=== PATIENT | male | born 1995 | race Caucasian/White ===

== ENCOUNTER 2020-07-02 20:18 | Inpatient (IN) | payer OTHER, SELFPAY ==
[~2020-07-02 20:18] MED LIST: Iopamidol 300 61% 100 ML VIAL FS ONE; Iopamidol-370 76% 500 ML 1 ML ONE
[2020-07-02] MEDS ORDERED: Propofol 1,000 MG/100 ML VIAL IV ONE ×2 (20:24→20:27)
[2020-07-02] MEDS ORDERED: PROPOFOL 0 ML ONE (20:24)
[2020-07-02] MEDS ORDERED: Boostrix 0.5 ML (Tdap) VIAL ONE (20:34)
[2020-07-02 20:44] LABS: INR-International Normal Ratio 1.1; PTT 31.4 sec (22.9-36.1); Prothrombin Time 14.4 sec (12.0-14.7)
[2020-07-02 20:45] LABS: #Basophils 0.1 thou/uL (0.0-0.2); #Eosinphils 0.1 thou/uL (0.0-0.7); #Lymphocytes 4.9 thou/uL (1.20-3.40); #Monocytes 0.2 thou/uL (0.11-0.59); #Neutrophils 12.8 thou/uL (1.40-6.50); %Basophils 0.8 % (0.0-1.0); %Eosinophils 0.7 % (0.0-10.0); %Lymphocytes 26.8 % (21.0-51.0); %Monocytes 1.1 % (0.0-10.0); %Neutrophils 70.7 % (42.0-75.0); Hemoglobin 13.5 g/dL (14.0-18.0); Mean Corpuscular HGB CONC 33.9 g/dL (32.0-36.0); Mean Corpuscular Hemoglobin 31.6 pg (27.0-31.0); Mean Corpuscular Volume 93.1 fL (78.0-98.0); Mean Platelet Volume 7.7 fL (7.4-10.4); Platelet Count 241 thou/uL (130-400); RBC Distribution Width 11.9 % (11.5-14.5); Red Blood Cell (RBC) Count 4.27 mill/uL (4.70-6.10); White Blood Cell (WBC) Count 18.1 thou/uL (4.8-10.8)
[2020-07-02] MEDS ORDERED: Fentanyl 100 MCG/2 ML VIAL ONE (20:46)
[2020-07-02 20:52] LABS: ALT (SGPT) 325 U/L (8-55); AST (SGOT) 488 U/L (5-34); Acetaminophen Less than 6.0 mcg/mL (10.0-30.0); Albumin 3.6 g/dL (3.5-5.0); Alcohol Less than 10 mg/dL (Less than 10); Alkaline Phosphatase 66 U/L (40-110); Anion Gap 13 mmol/L (10-20); BUN (Urea Nitrogen) 13 mg/dL (8.9-20.6); Bilirubin, Total 0.2 mg/dL (0.2-1.2); Calc. Creatinine Clearance 0 mL/min (70-130); Carbon Dioxide 23 mmol/L (22-29); Chloride 108 mmol/L (98-107); Globulin 2.2 g/dL (2.4-3.5); Glucose 140 mg/dL (70-105); Potassium 3.3 mmol/L (3.5-5.1); Protein, Total 5.8 g/dL (6.0-8.3); Salicylate Less than 8.0 mg/dL (15.0-30.0); Sodium 141 mmol/L (136-145)
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
--- NOTE | 2020-07-02 21:07 | RAD ---
EXAM: XR Chest 1 View Portable PROVIDED CLINICAL HISTORY: Endotracheal tube adjustment COMPARISON: 07/02/2018 at 2034 hours. FINDINGS: Endotracheal tube has been slightly advanced with tip overlying the T2-3 level and just above the lev el of the thoracic inlet. Right-sided thoracostomy tube remains unchanged in position. Left lateral costophrenic angle is again excluded from view. Lungs otherwise appear clear, and no obvious pneumoth orax or pleural effusion is seen. Fracture involving the lateral right first rib is again seen. Fracture of the lateral left first rib could not be entirely excluded. There is biapical increased de nsity which is thought to be related to extrapleural density and possibly soft tissues or extrapleural hemorrhage as opposed to pleural fluid as there is no pleural fluid at either lung base. This would be better evaluated with CT thorax. Cardiac silhouette and pulmonary vasculature are within normal limits. No other interval change. IMPRESSION: 1. Slight advancement of the endotracheal tube with tip overlying the T2-3 level. 2. Right-sided thoracostomy tube remain in place without a pneumothorax seen. 3. Fracture lateral right first rib with questionable fracture lateral left first rib. 4. Increased density each lung apex which is thought to be related to extrapleural density and possib ly either extrapleural soft tissues or extrapleural hemorrhage. This is not thought to be related to pleural fluid as there is no pleural fluid at either lung base. This would be better evaluated wit h CT thorax.
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
[2020-07-02] MEDS ORDERED: Insulin Regular 300 UNITS/3 ML VIAL SC PRN (21:33)
[2020-07-02] MEDS ORDERED: Dextrose 50% Abboject 50 ML SYRINGE SLOW IVP PRN (21:33)
[2020-07-02] MEDS ORDERED: Dextrose 5% in Water 1,000 ML IV PRN (21:33)
[2020-07-02] MEDS ORDERED: Ondansetron PF 4 MG/2 ML Vial IVP PRN (21:33)
[2020-07-02 21:38] LABS: Actual Bicarbonate (HCO3a) 19.6 mEq/L (22-28); Analyzer IN Cardio ER; CO2 Tension 43.6 mmHg (35.0-45.0); Calcium, Ionized (arterial) 1.14 mmol/L (1.12-1.30); Carboxyhemoglobin (COHb) 0.5 gm% (0.0-3.0); O2 Tension (PaO2), arterial 321.3 mmHg (80.0-100.0); pH, Arterial 7.27 (7.35-7.45)
[2020-07-02 21:45] LABS: Puncture Site LBA
[2020-07-02] MEDS ORDERED: Lorazepam 2 MG/ML VIAL SLOW IVP PRN (21:45)
[2020-07-02] MEDS ORDERED: Ventilator Sedation Protocol 1 EACH FS SCH (21:45)
[2020-07-02] MEDS ORDERED: DISCONTINUE PREVIOUS NARCOTIC PAIN MEDICATIONS AND BENZODIAZEPINES FS SCH (21:45)
[2020-07-02] MEDS ORDERED: Propofol BOLUS 1,000 MG/100 ML VIAL IV PRN (21:45)
[2020-07-02] MEDS ORDERED: Morphine 2 MG/ML VIAL SLOW IVP PRN (21:45)
[2020-07-02] MEDS ORDERED: Fentanyl BOLUS 250 ML IVPB PRN (21:45)
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
[2020-07-02 21:50] LABS: Bacteria/HPF None Seen HPF (None Seen); Bilirubin Negative (Negative); Blood, Urine 3+ (Negative); Clarity Turbid (Clear); Glucose, Urine (Dipstick) Normal (Negative); Ketone, Urine Negative (Negative); Leukocyte Negative Leu/uL (Negative); Nitrite Negative (Negative); Protein, Urine (Dipstick) 70 mg/dL (Neg-Trace); RBC/HPF Greater than 50 HPF (0-3); Specific Gravity, Urine 1.016 (1.002-1.036); Squamous Epithelial 0-3 HPF (0-3); Urobilinogen Normal mg/dL (Less than 2); WBC/HPF 21-50 HPF (0-3); pH, Urine 6.5 (5.0-9.0)
[2020-07-02 21:59] LABS: Magnesium 1.9 mg/dL (1.6-2.6); Phosphorus 3.7 mg/dL (2.3-4.7)
[2020-07-02 21:59] LABS: Amphetamine Detected (NotDetected); Barbiturates Screen Not Detected (NotDetected); Benzodiazepine Screen Not Detected (NotDetected); Cocaine Metabolite Screen Not Detected (NotDetected); Medtox Control Line Valid? VALID (VALID); Medtox Reader # READER 1; Methadone Not Detected (NotDetected); Methamphetamine Detected (NotDetected); Opiate Screen Not Detected (NotDetected); Oxycodone Screen Not Detected (NotDetected); Phencyclidine (PCP) Not Detected (NotDetected); THC/Cannabinoid Screen Detected (NotDetected); Tricyclic Screen Not Detected (NotDetected)
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
[2020-07-02] MEDS ORDERED: Magnesium 2 GM/50 ML 2 GM in Premix Bag 1 BAG IVPB SCH (22:30)
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
[2020-07-02] MEDS ORDERED: Potassium Phosphate 30 MMOL in Sodium Chloride 0.9% 250 ML 250 ML IVPB SCH (23:00)
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
[2020-07-02 23:28] LABS: Actual Bicarbonate (HCO3a) 20.3 mEq/L (22-28); Base Excess (BEa) -5.6 mEq/L (-2.0 to +3.0); CO2 Tension 41.4 mmHg (35.0-45.0); Calcium, Ionized (arterial) 1.14 mmol/L (1.12-1.30); Carboxyhemoglobin (COHb) 0.4 gm% (0.0-3.0); Hemoglobin (Hb) 12.4 g/dL (14.0-18.0); O2 Tension (PaO2), arterial 97.2 mmHg (80.0-100.0); Potassium - ABG Lab 4.18 mmol/L (3.70-5.30); pH, Arterial 7.31 (7.35-7.45)
[2020-07-02 23:33] LABS: Puncture Site FEM
[2020-07-02 23:58] LABS: Lactic Acid 3.7 mmol/L (0.5-2.2)
[2020-07-03] MEDS: Sodium Chloride 0.9% 1,000 ML IV SCH ×4 (00:19→16:07)
[2020-07-03] MEDS ORDERED: Lidocaine 1% (PF) 30 ML VIAL ONE (01:28)
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
[2020-07-03] MEDS: Propofol 1,000 MG/100 ML VIAL IV PRN ×3 (04:24→19:57)
[2020-07-03 06:24] LABS: Band 21 % (5-11); Hemoglobin 12.4 g/dL (14.0-18.0); Lymphocytes 8 % (21-51); MDiff Complete? YES; Mean Corpuscular HGB CONC 34.3 g/dL (32.0-36.0); Mean Corpuscular Hemoglobin 32.2 pg (27.0-31.0); Mean Corpuscular Volume 93.9 fL (78.0-98.0); Mean Platelet Volume 8.7 fL (7.4-10.4); Monocytes 4 % (0-10); Neutrophil 67 % (42-75); Platelet Count 169 thou/uL (130-400); Platelet Morphology Comment Appears Adequate; Red Blood Cell (RBC) Count 3.84 mill/uL (4.70-6.10); White Blood Cell (WBC) Count 14.9 thou/uL (4.8-10.8)
[2020-07-03 06:25] LABS: Lactic Acid 4.2 mmol/L (0.5-2.2)
[2020-07-03 06:27] LABS: Anion Gap 15 mmol/L (10-20); BUN (Urea Nitrogen) 15 mg/dL (8.9-20.6); Calc. Creatinine Clearance 119 mL/min (70-130); Carbon Dioxide 24 mmol/L (22-29); Chloride 107 mmol/L (98-107); Glucose 97 mg/dL (70-105); Magnesium 2.4 mg/dL (1.6-2.6); Phosphorus 4.6 mg/dL (2.3-4.7); Potassium 4.9 mmol/L (3.5-5.1); Sodium 141 mmol/L (136-145)
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
[2020-07-03] MEDS ORDERED: Lactated Ringer's 1,000 ML IV SCH ×3 (08:00→16:45)
--- NOTE | 2020-07-03 08:11 | RAD ---
Chest AP view INDICATION: History of right-sided chest tube placement COMPARISON: Prior exam dated July 02, 2020 FINDINGS: Lungs: There is worsening bilateral lower lobe airspace disease, right greater than left. Cardiac silhouette: The cardiomediastinal silhouette appears within normal limits. Pulmonary vasculature: Normal Pleural spaces: No pleural effusion or pneumothorax is demonstrated. Upper abdomen: Gastric catheter is present within the gastric fundus. Osseous structures: Osseous structures are unchanged. Additional findings: The patient remains intubated. There is a right-sided thoracostomy tube that is unchanged. No pneumothorax is evident. IMPRESSION: Worsening bilateral lower lobe airspace disease, right greater than left may reflect evolving pulmona ry contusions or possibly aspiration. Recommend continued radiographic follow-up. Stable ET tube and right-sided thoracostomy tube. No pneumothorax. New gastric catheter projects in the region of th e gastric fundus.
[2020-07-03] MEDS: Famotidine/PF 20 mg/2ml Vial SLOW IVP SCH ×2 (08:26→20:25)
[2020-07-03 08:28] LABS: SARS-CoV-2 NAA Rapid Test Not Detected (NotDetected)
[2020-07-03] MEDS ORDERED: Midazolam HCl 2 mg/2 ml Vial ONE ×2 (08:38→10:58)
[2020-07-03] MEDS ORDERED: Fentanyl 250 MCG/5 ML VIAL ONE (08:38)
[2020-07-03] MEDS ORDERED: Rocuronium Bromide 10 MG/ML (10ML VIAL) ONE (08:45)
[2020-07-03] MEDS ORDERED: PHENYLEPHRINE-NS 100 MCG/ML 10 ML SYRINGE ONE (08:45)
[2020-07-03] MEDS ORDERED: Vecuronium 10 MG VIAL ONE (08:45)
[2020-07-03 08:55] LABS: Actual Bicarbonate (HCO3a) 21.8 mEq/L (22-28); Base Excess (BEa) -3.2 mEq/L (-2.0 to +3.0); Calcium, Ionized (arterial) 1.09 mmol/L (1.12-1.30); Carboxyhemoglobin (COHb) 0.5 gm% (0.0-3.0); Hemoglobin (Hb) 11.7 g/dL (14.0-18.0); Potassium - ABG Lab 4.42 mmol/L (3.70-5.30); pH, Arterial 7.37 (7.35-7.45)
[2020-07-03 08:58] LABS: Puncture Site FEM
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
[2020-07-03] MEDS ORDERED: cefTRIAXone\\ROCEPHIN 1 GM VIAL ONE (10:02)
[2020-07-03] MEDS ORDERED: Albumin 5% 500 ML ONE (10:48)
[2020-07-03] MEDS ORDERED: Fentanyl 100 MCG/2 ML VIAL ONE (13:12)
[2020-07-03] MEDS ORDERED: Rocuronium Bromide 50 MG/5 ML VIAL ONE (13:26)
[2020-07-03] MEDS ORDERED: Calcium Chloride 1 GM/10 ML Abboject SYRINGE IVP SCH ×2 (14:30→17:30)
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
[2020-07-03 15:32] LABS: Actual Bicarbonate (HCO3a) 21.4 mEq/L (22-28); Base Excess (BEa) -4.2 mEq/L (-2.0 to +3.0); CO2 Tension 41.3 mmHg (35.0-45.0); Calcium, Ionized (arterial) 1.05 mmol/L (1.12-1.30); Carboxyhemoglobin (COHb) 0.2 gm% (0.0-3.0); Hemoglobin (Hb) 9.5 g/dL (14.0-18.0); O2 Tension (PaO2), arterial 84.1 mmHg (80.0-100.0); Potassium - ABG Lab 4.08 mmol/L (3.70-5.30); pH, Arterial 7.33 (7.35-7.45)
[2020-07-03 15:34] LABS: ALV-art Gradient 149.475 mmHg (0-20); Puncture Site RBRACH
[2020-07-03 15:37] LABS: #Lymphocytes 1.8 thou/uL (1.20-3.40); #Monocytes 0.4 thou/uL (0.11-0.59); #Neutrophils 10.1 thou/uL (1.40-6.50); %Basophils 0.2 % (0.0-1.0); %Eosinophils 0.1 % (0.0-10.0); %Lymphocytes 14.5 % (21.0-51.0); %Monocytes 3.5 % (0.0-10.0); %Neutrophils 81.9 % (42.0-75.0); Hemoglobin 9.3 g/dL (14.0-18.0); Mean Corpuscular HGB CONC 34.9 g/dL (32.0-36.0); Mean Corpuscular Volume 94.7 fL (78.0-98.0); Mean Platelet Volume 7.8 fL (7.4-10.4); Platelet Count 138 thou/uL (130-400); Red Blood Cell (RBC) Count 2.81 mill/uL (4.70-6.10); White Blood Cell (WBC) Count 12.4 thou/uL (4.8-10.8)
--- NOTE | 2020-07-03 15:57 | RAD ---
RIGHT WRIST 2 VIEWS:: Date: 07/03/2020 HISTORY: Intraoperative films. FINDINGS: These C-arm views show open reduction and internal fixation of a distal radial fracture with plate an d screws. Bony alignment appears satisfactory. IMPRESSION: Open reduction and internal fixation of distal radial fracture. POS: [facility]
--- NOTE | 2020-07-03 15:58 | RAD ---
LEFT FOREARM 2 VIEWS: Date: 07/03/2020 HISTORY: Intraoperative films. FINDINGS: This is a series of C-arm images showing plate and screw placement fixing distal radial and ulnar fra ctures. IMPRESSION: Open reduction and internal fixation of distal radial fractures. POS: [facility]
--- NOTE | 2020-07-03 15:59 | RAD ---
RIGHT WRIST 2 VIEWS: Date: 07/03/2020 HISTORY: Postop. FINDINGS: These are two C-arm views which show partial visualization of plate and screws of the distal radius a nd ulna. In addition, there are comminuted fractures identified of the scaphoid and comminuted intera rticular fracture of base of first metacarpal. IMPRESSION: Carpal and metacarpal fractures. POS: [facility]
--- NOTE | 2020-07-03 16:01 | RAD ---
AP PELVIS 7 IMAGES: Date: 07/03/2020 HISTORY: Intraoperative films. FINDINGS: These films show plate and screw placement across the symphysis region and a long lag screw placed th rough one of the superior pubic rami. The films are not labeled as to right or left. Also, screw plac ement across the SI joints and sacrum are present. IMPRESSION: Postop changes of the pelvis. POS: [facility]
[2020-07-03] MEDS: Acetaminophen 500 MG TAB PER TUBE SCH ×2 (16:06→22:16)
[2020-07-03] MEDS: CEFAZOLIN 2 GM in Premix Bag 1 BAG IVPB SCH ×2 (16:06→23:02)
[2020-07-03] MEDS: Dexamethasone 4 mg/ml Vial SLOW IVP SCH ×3 (16:07→23:04)
[2020-07-03] MEDS: cefTRIAXone\\ROCEPHIN 1 GM in Sodium Chloride 0.9% 100 ML IVPB SCH (16:12)
[2020-07-03] MEDS: fentaNYL Citrate/PF 2,000 MCG in Sodium Chloride 0.9% 60 ML IV SCH (16:16)
[2020-07-03 16:20] LABS: CK (CPK) 5765 U/L (30-200)
[2020-07-03 16:23] LABS: ALT (SGPT) 169 U/L (8-55); AST (SGOT) 210 U/L (5-34); Alkaline Phosphatase 42 U/L (40-110); Anion Gap 14 mmol/L (10-20); BUN (Urea Nitrogen) 15 mg/dL (8.9-20.6); Calc. Creatinine Clearance 138 mL/min (70-130); Calcium 7.6 mg/dL (7.8-10.44); Carbon Dioxide 22 mmol/L (22-29); Chloride 108 mmol/L (98-107); Globulin 1.7 g/dL (2.4-3.5); Glucose 134 mg/dL (70-105); Magnesium 2.1 mg/dL (1.6-2.6); Phosphorus 3.5 mg/dL (2.3-4.7); Potassium 4.2 mmol/L (3.5-5.1); Protein, Total 4.7 g/dL (6.0-8.3); Sodium 140 mmol/L (136-145)
[2020-07-03 16:30] LABS: Bilirubin, Total 0.5 mg/dL (0.2-1.2)
[2020-07-03] MEDS ORDERED: LACTATED RINGER S IV SCH (17:45)
[2020-07-03] MEDS ORDERED: SODIUM BICARBONATE IV SCH (17:45)
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
[2020-07-03] MEDS: Sodium Bicarbonate 150 MEQ in Dextrose 5% in Water 1,000 ML IV SCH (19:58)
--- NOTE | 2020-07-03 21:09 | EKG ---
Test Reason : Blood Pressure : / mmHG Vent. Rate : 080 BPM Atrial Rate : 080 BPM P-R Int : 122 ms QRS Dur : 132 ms QT Int : 382 ms P-R-T Axes : 021 100 042 degrees QTc Int : 440 ms Normal sinus rhythm Right bundle branch block Abnormal ECG No previous ECGs available Confirmed by Bk RYAN ([id number]) on 07/03/2020 9:09:11 PM Referred By: JACKSON Confirmed By:Bk RYAN
[2020-07-03 21:20] LABS: Hemoglobin 8.3 g/dL (14.0-18.0); Mean Corpuscular HGB CONC 34.9 g/dL (32.0-36.0); Mean Corpuscular Hemoglobin 32.8 pg (27.0-31.0); Mean Platelet Volume 7.8 fL (7.4-10.4); Platelet Count 110 thou/uL (130-400); Red Blood Cell (RBC) Count 2.52 mill/uL (4.70-6.10)
[2020-07-03 21:34] LABS: Lactic Acid 3.3 mmol/L (0.5-2.2)
[2020-07-03] MEDS ORDERED: Vecuronium 10 MG VIAL IVP PRN (22:44)
[2020-07-03] MEDS ORDERED: Lidocaine 1% w/Epinephrine 1:100K 20 ML VIAL IJ SCH (22:45)
[2020-07-03] MEDS ORDERED: Sterile Water 10 ML VIAL FS PRN (22:50)
[2020-07-03] MEDS: Acetaminophen 650 MG/20.3 ML UDCUP PER TUBE SCH (22:59)
[2020-07-03] MEDS ORDERED: Sodium Phosphate 15 MMOL in Sodium Chloride 0.9% 250 ML 250 ML IVPB SCH (23:00)
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
[2020-07-04 02:13] LABS: #Lymphocytes 0.6 thou/uL (1.20-3.40); #Monocytes 0.4 thou/uL (0.11-0.59); %Basophils 0.1 % (0.0-1.0); %Eosinophils 0.1 % (0.0-10.0); %Lymphocytes 7.4 % (21.0-51.0); %Monocytes 5.3 % (0.0-10.0); %Neutrophils 87.1 % (42.0-75.0); Hemoglobin 7.6 g/dL (14.0-18.0); Mean Corpuscular HGB CONC 33.8 g/dL (32.0-36.0); Mean Corpuscular Hemoglobin 32.3 pg (27.0-31.0); Mean Corpuscular Volume 95.4 fL (78.0-98.0); Mean Platelet Volume 7.7 fL (7.4-10.4); Platelet Count 101 thou/uL (130-400); Red Blood Cell (RBC) Count 2.37 mill/uL (4.70-6.10); White Blood Cell (WBC) Count 8.1 thou/uL (4.8-10.8)
[2020-07-04] MEDS: Sodium Bicarbonate 150 MEQ in Dextrose 5% in Water 1,000 ML IV SCH ×2 (02:18→10:08)
[2020-07-04] MEDS: Propofol 1,000 MG/100 ML VIAL IV PRN ×4 (02:22→19:17)
[2020-07-04 02:34] LABS: Lactic Acid 3.3 mmol/L (0.5-2.2)
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
[2020-07-04 02:39] LABS: ALT (SGPT) 126 U/L (8-55); AST (SGOT) 137 U/L (5-34); Albumin 2.7 g/dL (3.5-5.0); Alkaline Phosphatase 44 U/L (40-110); Bilirubin, Direct 0.2 mg/dL (0.1-0.3); Bilirubin, Total 0.4 mg/dL (0.2-1.2); Protein, Total 4.5 g/dL (6.0-8.3)
[2020-07-04 02:45] LABS: Anion Gap 12 mmol/L (10-20); BUN (Urea Nitrogen) 11 mg/dL (8.9-20.6); Calc. Creatinine Clearance 142 mL/min (70-130); Carbon Dioxide 28 mmol/L (22-29); Chloride 106 mmol/L (98-107); Glucose 130 mg/dL (70-105); Phosphorus 1.6 mg/dL (2.3-4.7); Potassium 3.9 mmol/L (3.5-5.1); Sodium 142 mmol/L (136-145)
[2020-07-04 02:52] LABS: CK (CPK) 4894 U/L (30-200)
[2020-07-04 03:23] LABS: Bilirubin Negative (Negative); Blood, Urine Negative (Negative); Glucose, Urine (Dipstick) Negative (Negative); Ketone, Urine Negative (Negative); Leukocyte Negative (Negative); Nitrite Negative (Negative); Protein, Urine (Dipstick) Negative (Neg-Trace); Urobilinogen 0.2 mg/dL (Less than 2); pH, Urine 7.5 (5.0-9.0)
[2020-07-04 03:26] LABS: Clarity Clear (Clear)
[2020-07-04 03:35] LABS: Amphetamine Not Detected (NotDetected); Barbiturates Screen Not Detected (NotDetected); Benzodiazepine Screen Not Detected (NotDetected); Cocaine Metabolite Screen Not Detected (NotDetected); Medtox Control Line Valid? VALID (VALID); Medtox Reader # READER 4; Methadone Not Detected (NotDetected); Methamphetamine Not Detected (NotDetected); Opiate Screen Not Detected (NotDetected); Oxycodone Screen Not Detected (NotDetected); Phencyclidine (PCP) Not Detected (NotDetected); THC/Cannabinoid Screen Detected (NotDetected); Tricyclic Screen Not Detected (NotDetected)
[2020-07-04] MEDS: Acetaminophen 650 MG/20.3 ML UDCUP PER TUBE SCH ×4 (05:19→22:58)
[2020-07-04] MEDS: Dexamethasone 4 mg/ml Vial SLOW IVP SCH (05:20)
[2020-07-04 06:37] LABS: Phosphorus 1.9 mg/dL (2.3-4.7)
[2020-07-04] MEDS ORDERED: Potassium Phosphate 30 MMOL in Sodium Chloride 0.9% 250 ML 250 ML IVPB SCH ×2 (07:00→22:30)
[2020-07-04 07:25] LABS: Actual Bicarbonate (HCO3a) 26.2 mEq/L (22-28); Base Excess (BEa) 3.5 mEq/L (-2.0 to +3.0); CO2 Tension 31.9 mmHg (35.0-45.0); Calcium, Ionized (arterial) 1.07 mmol/L (1.12-1.30); Carboxyhemoglobin (COHb) 0.7 gm% (0.0-3.0); Hemoglobin (Hb) 7.8 g/dL (14.0-18.0); O2 Tension (PaO2), arterial 90.5 mmHg (80.0-100.0); Potassium - ABG Lab 3.53 mmol/L (3.70-5.30); pH, Arterial 7.53 (7.35-7.45)
[2020-07-04 07:27] LABS: ALV-art Gradient 154.825 mmHg (0-20); Puncture Site RBA
[2020-07-04] MEDS: fentaNYL Citrate/PF 2,000 MCG in Sodium Chloride 0.9% 60 ML IV SCH ×2 (07:49→19:33)
[2020-07-04] MEDS ORDERED: Calcium Chloride 1 GM/10 ML Abboject SYRINGE IVP SCH (08:00)
[2020-07-04] MEDS: CEFAZOLIN 2 GM in Premix Bag 1 BAG IVPB SCH ×3 (08:39→23:28)
[2020-07-04] MEDS: Famotidine/PF 20 mg/2ml Vial SLOW IVP SCH ×2 (09:05→21:44)
--- NOTE | 2020-07-04 09:06 | RAD ---
PORTABLE CHEST: Date: 07/04/2020 HISTORY: CCU follow-up. COMPARISON: 07/03/2020. FINDINGS/IMPRESSION: The right chest tube is unchanged. A NG tube is unchanged. No pneumothorax. No evidence of focal cons olidation or infiltrate. No significant interval change in the chest. POS: AGW
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
[2020-07-04] MEDS: Ferrous Sulfate 325 MG TAB PO SCH ×2 (11:16→21:43)
[2020-07-04] MEDS: Ascorbic Acid 500 mg Chewable Tablet PO SCH ×2 (11:16→21:43)
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
[2020-07-04] MEDS: cefTRIAXone\\ROCEPHIN 1 GM in Sodium Chloride 0.9% 100 ML IVPB SCH (17:19)
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
[2020-07-04 20:58] LABS: Lactic Acid 1.7 mmol/L (0.5-2.2)
[2020-07-04 21:01] LABS: Anion Gap 12 mmol/L (10-20); BUN (Urea Nitrogen) 10 mg/dL (8.9-20.6); Calc. Creatinine Clearance 156 mL/min (70-130); Calcium 8.1 mg/dL (7.8-10.44); Carbon Dioxide 28 mmol/L (22-29); Chloride 106 mmol/L (98-107); Glucose 102 mg/dL (70-105); Magnesium 1.9 mg/dL (1.6-2.6); Mean Corpuscular HGB CONC 34.1 g/dL (32.0-36.0); Mean Corpuscular Hemoglobin 32.5 pg (27.0-31.0); Mean Corpuscular Volume 95.5 fL (78.0-98.0); Mean Platelet Volume 8.4 fL (7.4-10.4); Phosphorus 2.1 mg/dL (2.3-4.7); Platelet Count 105 thou/uL (130-400); Potassium 3.5 mmol/L (3.5-5.1); RBC Distribution Width 11.9 % (11.5-14.5); Red Blood Cell (RBC) Count 2.16 mill/uL (4.70-6.10); Sodium 142 mmol/L (136-145); White Blood Cell (WBC) Count 7.7 thou/uL (4.8-10.8)
[2020-07-04] MEDS ORDERED: Magnesium 2 GM/50 ML 2 GM in Premix Bag 1 BAG IVPB SCH (22:15)
[2020-07-05] MEDS: Propofol 1,000 MG/100 ML VIAL IV PRN ×3 (01:21→11:16)
[2020-07-05] MEDS: Sodium Bicarbonate 150 MEQ in Dextrose 5% in Water 1,000 ML IV SCH (02:00)
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
[2020-07-05 05:20] LABS: ALT (SGPT) 74 U/L (8-55); AST (SGOT) 86 U/L (5-34); Albumin 2.6 g/dL (3.5-5.0); Alkaline Phosphatase 59 U/L (40-110); Anion Gap 10 mmol/L (10-20); BUN (Urea Nitrogen) 10 mg/dL (8.9-20.6); Bilirubin, Total 0.4 mg/dL (0.2-1.2); Calc. Creatinine Clearance 150 mL/min (70-130); Calcium 7.8 mg/dL (7.8-10.44); Carbon Dioxide 31 mmol/L (22-29); Chloride 104 mmol/L (98-107); Globulin 2.2 g/dL (2.4-3.5); Glucose 97 mg/dL (70-105); Magnesium 2.2 mg/dL (1.6-2.6); Phosphorus 2.3 mg/dL (2.3-4.7); Potassium 3.5 mmol/L (3.5-5.1); Protein, Total 4.8 g/dL (6.0-8.3); Sodium 141 mmol/L (136-145)
[2020-07-05 05:22] LABS: #Lymphocytes 1.8 thou/uL (1.20-3.40); #Monocytes 0.4 thou/uL (0.11-0.59); #Neutrophils 4.7 thou/uL (1.40-6.50); %Basophils 0.3 % (0.0-1.0); %Eosinophils 0.6 % (0.0-10.0); %Lymphocytes 25.4 % (21.0-51.0); %Monocytes 5.5 % (0.0-10.0); %Neutrophils 68.2 % (42.0-75.0); Hemoglobin 6.7 g/dL (14.0-18.0); Mean Corpuscular HGB CONC 35.1 g/dL (32.0-36.0); Mean Corpuscular Hemoglobin 32.9 pg (27.0-31.0); Mean Corpuscular Volume 93.7 fL (78.0-98.0); Platelet Count 103 thou/uL (130-400); RBC Distribution Width 11.8 % (11.5-14.5); Red Blood Cell (RBC) Count 2.05 mill/uL (4.70-6.10); White Blood Cell (WBC) Count 6.9 thou/uL (4.8-10.8)
[2020-07-05 05:34] LABS: CK (CPK) 4452 U/L (30-200)
[2020-07-05] MEDS: Acetaminophen 650 MG/20.3 ML UDCUP PER TUBE SCH ×4 (05:48→22:57)
[2020-07-05 07:08] LABS: Actual Bicarbonate (HCO3a) 27.3 mEq/L (22-28); Base Excess (BEa) 3.7 mEq/L (-2.0 to +3.0); CO2 Tension 36.1 mmHg (35.0-45.0); Calcium, Ionized (arterial) 1.07 mmol/L (1.12-1.30); Carboxyhemoglobin (COHb) 0.1 gm% (0.0-3.0); Hemoglobin (Hb) 6.7 g/dL (14.0-18.0); O2 Tension (PaO2), arterial 114.2 mmHg (80.0-100.0); Potassium - ABG Lab 3.48 mmol/L (3.70-5.30)
[2020-07-05] MEDS: fentaNYL Citrate/PF 2,000 MCG in Sodium Chloride 0.9% 60 ML IV SCH ×2 (07:19→21:37)
[2020-07-05 07:27] LABS: Puncture Site LBA
[2020-07-05 07:28] LABS: ALV-art Gradient 125.875 mmHg (0-20)
--- NOTE | 2020-07-05 07:51 | RAD ---
Chest AP view INDICATION: History of tracheostomy COMPARISON: July 04, 2020 FINDINGS: Lungs: Bilateral perihilar airspace opacities have worsened. Cardiac silhouette: The cardiomediastinal silhouette appears within normal limits. Pulmonary vasculature: Normal Pleural spaces: Right-sided thoracostomy tube is unchanged. No pneumothorax is evident. Upper abdomen: Gastric catheter has been removed. Osseous structures: Osseous structures are unchanged. Additional findings: New tracheostomy tube is seen with its tip near the region of thoracic inlet. IMPRESSION: Worsening perihilar airspace opacities may be related to low lung volumes and subsegmental volume los s; however, volume overload cannot be entirely excluded. Recommend clinical follow-up and radiographic follow-up.
[2020-07-05] MEDS ORDERED: Calcium Chloride 1 GM/10 ML Abboject SYRINGE IVP SCH (08:00)
[2020-07-05] MEDS ORDERED: Calcium Chloride 13.6 MEQ in Sodium Chloride 0.9% 100 ML IVPB SCH (08:15)
[2020-07-05] MEDS: CEFAZOLIN 2 GM in Premix Bag 1 BAG IVPB SCH ×2 (09:08→22:45)
[2020-07-05] MEDS ORDERED: DEXTROSE 5% IV SCH (09:45)
[2020-07-05] MEDS ORDERED: POTASSIUM CHLORIDE IV SCH (09:45)
[2020-07-05] MEDS ORDERED: SODIUM CHLORIDE IV SCH (09:45)
[2020-07-05] MEDS ORDERED: WATER IV SCH (09:45)
[2020-07-05] MEDS ORDERED: PHENYLEPHRINE-NS 100 MCG/ML 10 ML SYRINGE ONE (10:31)
[2020-07-05] MEDS ORDERED: PROPOFOL 200 MG/20 ML VIAL ONE (10:31)
[2020-07-05] MEDS ORDERED: Ondansetron PF 4 MG/2 ML Vial ONE (10:31)
[2020-07-05] MEDS ORDERED: Rocuronium Bromide 10 MG/ML (10ML VIAL) ONE (10:31)
[2020-07-05] MEDS: DEXTROSE 5% IV SCH ×2 (10:43→22:41)
[2020-07-05] MEDS: POTASSIUM CHLORIDE IV SCH ×2 (10:43→22:41)
[2020-07-05] MEDS: WATER IV SCH ×2 (10:43→22:41)
[2020-07-05] MEDS: SODIUM CHLORIDE IV SCH ×2 (10:43→22:41)
[2020-07-05] MEDS: Famotidine/PF 20 mg/2ml Vial SLOW IVP SCH ×2 (10:45→21:24)
[2020-07-05] MEDS: Ferrous Sulfate 325 MG TAB PO SCH ×2 (11:05→21:24)
[2020-07-05] MEDS: Ascorbic Acid 500 mg Chewable Tablet PO SCH ×2 (11:06→21:24)
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
[2020-07-05] MEDS ORDERED: Iopamidol 370 76% 50 ML VIAL FS ONE (13:15)
[2020-07-05] MEDS ORDERED: Chlorhexidine Gluconate 15 ML UDCUP SSP ONE (13:35)
[2020-07-05] MEDS ORDERED: Fentanyl 100 MCG/2 ML VIAL ONE ×2 (14:10→15:04)
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
[2020-07-05] MEDS ORDERED: AFRIN NASAL MIST 15 ML BOT ONE (16:41)
[2020-07-05] MEDS ORDERED: Bacitracin Zinc Ointment 30 gm TUBE ONE (17:14)
[2020-07-05] MEDS ORDERED: Midazolam HCl 2 mg/2 ml Vial ONE (17:15)
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
[2020-07-05 20:38] LABS: Mean Corpuscular HGB CONC 35.2 g/dL (32.0-36.0); Mean Corpuscular Hemoglobin 32.7 pg (27.0-31.0); Mean Corpuscular Volume 92.8 fL (78.0-98.0); Mean Platelet Volume 7.6 fL (7.4-10.4); Platelet Count 117 thou/uL (130-400); RBC Distribution Width 12.2 % (11.5-14.5); Red Blood Cell (RBC) Count 2.44 mill/uL (4.70-6.10); White Blood Cell (WBC) Count 7.8 thou/uL (4.8-10.8)
[2020-07-05 21:05] LABS: Anion Gap 13 mmol/L (10-20); BUN (Urea Nitrogen) 9 mg/dL (8.9-20.6); Calc. Creatinine Clearance 161 mL/min (70-130); Carbon Dioxide 26 mmol/L (22-29); Chloride 106 mmol/L (98-107); Glucose 137 mg/dL (70-105); Magnesium 1.9 mg/dL (1.6-2.6); Phosphorus 3.7 mg/dL (2.3-4.7); Sodium 141 mmol/L (136-145)
[2020-07-05] MEDS: Piperacillin/Tazobactam 3.375 GM in Sodium Chloride 0.9% 100 ML IVPB SCH (21:24)
[2020-07-05] MEDS: Bacitracin 1 PK TOP SCH (21:24)
[2020-07-05] MEDS ORDERED: Sodium Phosphate 15 MMOL in Sodium Chloride 0.9% 250 ML 250 ML IVPB SCH (21:30)
[2020-07-05] MEDS ORDERED: Magnesium 2 GM/50 ML 2 GM in Premix Bag 1 BAG IVPB SCH (21:30)
[2020-07-06] MEDS: traMADol HCl 50 MG TAB PO SCH ×4 (00:17→17:59)
[2020-07-06] MEDS: WATER IV SCH ×4 (00:50→21:31)
[2020-07-06] MEDS: SODIUM CHLORIDE IV SCH ×4 (00:50→21:31)
[2020-07-06] MEDS: POTASSIUM CHLORIDE IV SCH ×4 (00:50→21:31)
[2020-07-06] MEDS: DEXTROSE 5% IV SCH ×4 (00:50→21:31)
[2020-07-06] MEDS: Propofol 1,000 MG/100 ML VIAL IV PRN (02:42)
[2020-07-06] MEDS: Piperacillin/Tazobactam 3.375 GM in Sodium Chloride 0.9% 100 ML IVPB SCH ×4 (02:43→21:53)
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
[2020-07-06 03:50] LABS: #Lymphocytes 0.6 thou/uL (1.20-3.40); #Monocytes 0.3 thou/uL (0.11-0.59); #Neutrophils 5.6 thou/uL (1.40-6.50); %Basophils 0.1 % (0.0-1.0); %Eosinophils 0.1 % (0.0-10.0); %Lymphocytes 8.9 % (21.0-51.0); %Monocytes 4.8 % (0.0-10.0); %Neutrophils 86.1 % (42.0-75.0); Hemoglobin 7.3 g/dL (14.0-18.0); Mean Corpuscular HGB CONC 34.5 g/dL (32.0-36.0); Mean Corpuscular Hemoglobin 32.2 pg (27.0-31.0); Mean Corpuscular Volume 93.2 fL (78.0-98.0); Mean Platelet Volume 8.1 fL (7.4-10.4); Platelet Count 118 thou/uL (130-400); Red Blood Cell (RBC) Count 2.28 mill/uL (4.70-6.10); White Blood Cell (WBC) Count 6.5 thou/uL (4.8-10.8)
[2020-07-06 04:00] LABS: Anion Gap 13 mmol/L (10-20); BUN (Urea Nitrogen) 9 mg/dL (8.9-20.6); CK (CPK) 3295 U/L (30-200); Calc. Creatinine Clearance 167 mL/min (70-130); Calcium 7.7 mg/dL (7.8-10.44); Carbon Dioxide 26 mmol/L (22-29); Chloride 107 mmol/L (98-107); Glucose 145 mg/dL (70-105); Magnesium 2.5 mg/dL (1.6-2.6); Phosphorus 4.1 mg/dL (2.3-4.7); Potassium 4.2 mmol/L (3.5-5.1); Sodium 142 mmol/L (136-145)
[2020-07-06] MEDS: Clindamycin/D5W 600 MG in Premix Bag 1 BAG IVPB SCH ×3 (04:36→21:09)
[2020-07-06] MEDS: Acetaminophen 650 MG/20.3 ML UDCUP PER TUBE SCH ×3 (04:36→17:57)
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
[2020-07-06 07:36] LABS: Actual Bicarbonate (HCO3a) 25.4 mEq/L (22-28); Base Excess (BEa) 1.1 mEq/L (-2.0 to +3.0); CO2 Tension 39.1 mmHg (35.0-45.0); Calcium, Ionized (arterial) 1.05 mmol/L (1.12-1.30); Carboxyhemoglobin (COHb) 0.3 gm% (0.0-3.0); Hemoglobin (Hb) 7.4 g/dL (14.0-18.0); O2 Tension (PaO2), arterial 145.9 mmHg (80.0-100.0); Potassium - ABG Lab 3.93 mmol/L (3.70-5.30); pH, Arterial 7.43 (7.35-7.45)
[2020-07-06 07:38] LABS: Puncture Site L.B.
[2020-07-06 07:39] LABS: ALV-art Gradient 90.425 mmHg (0-20)
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
[2020-07-06] MEDS: Senokot S 8.6-50 MG TAB PO SCH ×2 (09:39→21:52)
[2020-07-06] MEDS: Polyethylene Glycol 3350 17 GM Packet PO SCH (09:39)
[2020-07-06] MEDS: Chlorhexidine Gluconate 15 ML UDCUP SSP SCH ×2 (09:40→21:52)
[2020-07-06] MEDS: Famotidine/PF 20 mg/2ml Vial SLOW IVP SCH ×2 (09:41→21:09)
[2020-07-06] MEDS: Dexamethasone 4 mg/ml Vial SLOW IVP SCH ×3 (09:41→21:10)
[2020-07-06] MEDS: Saccharomyces boulardii 250 MG CAP PO SCH (09:41)
[2020-07-06] MEDS: Gabapentin 300 MG CAP PO SCH ×3 (09:42→21:30)
[2020-07-06] MEDS: Ferrous Sulfate 325 MG TAB PO SCH ×2 (09:42→21:52)
[2020-07-06] MEDS: Ascorbic Acid 500 mg Chewable Tablet PO SCH ×2 (09:42→21:31)
[2020-07-06] MEDS: Bacitracin 1 PK TOP SCH ×2 (09:43→21:31)
[2020-07-06] MEDS: Vancomycin HCl 1.25 GM in Sodium Chloride 0.9% 250 ML 250 ML IVPB SCH ×2 (09:43→17:57)
[2020-07-06] MEDS: fentaNYL Citrate/PF 2,000 MCG in Sodium Chloride 0.9% 60 ML IV SCH (09:53)
[2020-07-06] MEDS ORDERED: Calcium Chloride 1 GM/10 ML Abboject SYRINGE IVP SCH (10:00)
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
--- NOTE | 2020-07-06 12:26 | PRG ---
DATE OF SERVICE: 07/06/2020 SUBJECTIVE: The patient is still resting on a hospital bed in room 812. He is restrained, but he is awake. He does have a trach in, but he is following commands, but you can tell he is quite agitated. OBJECTIVE: VITAL SIGNS: Stable. Temperature 99.4. EXTREMITIES: Upper extremities; splint is clean, dry, intact. Pelvis; dressing is clean, dry, intact. He is moving all the extremities well and following commands. LABORATORY DATA: H and H 7.3 and 21.2, platelets 118. ASSESSMENT: Ortho, stable. PLAN: Again, he will be nonweightbearing for a fair amount of time with all of his extremities and pelvic fractures, Trauma following him. We will see him on a daily basis. Job ID: [id number]
--- NOTE | 2020-07-06 13:57 | PRG ---
DATE OF SERVICE: 07/06/2020 Mr. Morse is resting comfortably with his tracheostomy. He eye opens and tracks the examiner easily. He follows commands and mouths words. He seems quite comfortable. This is a marked improvement overall from previous. No specific neurosurgical recommendations at this time. Anticipate followup head CT in [address] Garcia. Job ID: [id number]
--- NOTE | 2020-07-06 14:24 | EKG ---
Test Reason : Blood Pressure : / mmHG Vent. Rate : 076 BPM Atrial Rate : 076 BPM P-R Int : 132 ms QRS Dur : 142 ms QT Int : 408 ms P-R-T Axes : 017 095 044 degrees QTc Int : 459 ms Normal sinus rhythm Right bundle branch block Abnormal ECG Confirmed by MAURICE COOK DO ([id number]), editor dictionary SHADY CEDEÑO ([id number]) on 07/06/2020 2:24:12 PM Referred By: Confirmed By:MAURICE COOK DO
[2020-07-06] MEDS ORDERED: Morphine 4 MG/ML VIAL SLOW IVP PRN (22:48)
[2020-07-06 23:34] LABS: Vancomycin, Trough 11.8 ug/mL
[2020-07-07] MEDS: traMADol HCl 50 MG TAB PO SCH ×4 (00:22→17:57)
[2020-07-07] MEDS: Vancomycin 1.5 GRAM/300 ML BAG 1.5 GM in Premix Bag 1 BAG IVPB SCH ×3 (00:22→16:12)
[2020-07-07] MEDS: Acetaminophen 650 MG/20.3 ML UDCUP PER TUBE SCH ×4 (00:23→16:11)
[2020-07-07] MEDS: POTASSIUM CHLORIDE IV SCH ×3 (00:33→22:44)
[2020-07-07] MEDS: SODIUM CHLORIDE IV SCH ×3 (00:33→22:44)
[2020-07-07] MEDS: DEXTROSE 5% IV SCH ×3 (00:33→22:44)
[2020-07-07] MEDS: WATER IV SCH ×3 (00:33→22:44)
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
[2020-07-07] MEDS: Piperacillin/Tazobactam 3.375 GM in Sodium Chloride 0.9% 100 ML IVPB SCH ×4 (03:17→20:37)
[2020-07-07] MEDS: Dexamethasone 4 mg/ml Vial SLOW IVP SCH (03:17)
[2020-07-07 04:43] LABS: Anion Gap 11 mmol/L (10-20); BUN (Urea Nitrogen) 10 mg/dL (8.9-20.6); Band 9 % (5-11); CK (CPK) 2109 U/L (30-200); Calc. Creatinine Clearance 200 mL/min (70-130); Calcium 8.7 mg/dL (7.8-10.44); Carbon Dioxide 28 mmol/L (22-29); Chloride 104 mmol/L (98-107); Glucose 138 mg/dL (70-105); Hemoglobin 7.7 g/dL (14.0-18.0); Lymphocytes 6 % (21-51); MDiff Complete? YES; Magnesium 2.1 mg/dL (1.6-2.6); Mean Corpuscular HGB CONC 33.9 g/dL (32.0-36.0); Mean Corpuscular Hemoglobin 32.3 pg (27.0-31.0); Mean Corpuscular Volume 95.3 fL (78.0-98.0); Mean Platelet Volume 8.4 fL (7.4-10.4); Monocytes 6 % (0-10); Myelocyte 1 % (0-0); Neutrophil 78 % (42-75); Platelet Count 165 thou/uL (130-400); Potassium 4.4 mmol/L (3.5-5.1); Red Blood Cell (RBC) Count 2.39 mill/uL (4.70-6.10); Sodium 139 mmol/L (136-145); White Blood Cell (WBC) Count 8.4 thou/uL (4.8-10.8)
[2020-07-07] MEDS: Clindamycin/D5W 600 MG in Premix Bag 1 BAG IVPB SCH ×3 (05:31→20:32)
[2020-07-07] MEDS: Famotidine/PF 20 mg/2ml Vial SLOW IVP SCH ×2 (08:55→20:36)
--- NOTE | 2020-07-07 09:20 | RAD ---
EXAM: Chest one view: HISTORY: Follow-up pneumonia COMPARISON: 07/06/2020 FINDINGS: Tracheostomy tube in place. Right chest tube in place. Heart size: Within normal limits. Lungs: Minimal patchy alveolar and interstitial opacity changes bilaterally No evidence for confluent lobar pneumonia, significant pleural effusion, acute edema, or pneumothorax , or other significant acute process. IMPRESSION: Stable chest.
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
[2020-07-07] MEDS: Gabapentin 300 MG CAP PO SCH ×3 (10:13→20:37)
[2020-07-07] MEDS: Ferrous Sulfate 325 MG TAB PO SCH ×2 (10:13→20:36)
[2020-07-07] MEDS: Saccharomyces boulardii 250 MG CAP PO SCH (10:13)
[2020-07-07] MEDS: Bacitracin 1 PK TOP SCH ×2 (10:13→20:36)
[2020-07-07] MEDS: Polyethylene Glycol 3350 17 GM Packet PO SCH (10:14)
[2020-07-07] MEDS: Ascorbic Acid 500 mg Chewable Tablet PO SCH ×2 (10:14→20:36)
[2020-07-07] MEDS: Chlorhexidine Gluconate 15 ML UDCUP SSP SCH ×2 (10:14→20:36)
[2020-07-07] MEDS: Senokot S 8.6-50 MG TAB PO SCH ×2 (10:15→20:37)
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
--- NOTE | 2020-07-07 12:10 | CT ---
Exam: Pelvis CT scan without IV contrast: HISTORY: Injury following ORIF FINDINGS: Transverse metal screws stabilize right and left SI joint regions with nondisplaced fracture through the left sacral ala, but no abnormal widening of the SI joints. Metal plate and numerous screws stabilize the right and left pubis region. There is considerable metal artifact lowering the sensitiv ity of this study. Again noted are very minimally displaced fractures of the right and left superior ischial rami and nondisplaced fracture of the right acetabulum and nondisplaced fractures of the right and left inferior ischiopubic rami. There is moderate fat stranding within the soft tissue pelvis as well as some minimal free pelvic fluid. Right and left femurs and femoral heads appe ar intact. IMPRESSION: Metal stabilization and fixation changes of the SI joints bilaterally as well as the pubis region. No significant change in previously noted fractures. Posttraumatic fat stranding and fluid within the soft tissue pelvis.
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
[2020-07-07 23:36] LABS: Vancomycin, Trough 12.7 ug/mL
[2020-07-08] MEDS: Vancomycin 1.5 GRAM/300 ML BAG 1.5 GM in Premix Bag 1 BAG IVPB SCH ×2 (00:10→10:24)
[2020-07-08] MEDS: Acetaminophen 650 MG/20.3 ML UDCUP PER TUBE SCH ×4 (00:12→17:37)
[2020-07-08] MEDS: traMADol HCl 50 MG TAB PO SCH ×4 (00:13→17:40)
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
[2020-07-08] MEDS: Piperacillin/Tazobactam 3.375 GM in Sodium Chloride 0.9% 100 ML IVPB SCH ×4 (03:08→20:03)
[2020-07-08] MEDS: Clindamycin/D5W 600 MG in Premix Bag 1 BAG IVPB SCH ×3 (04:37→19:59)
[2020-07-08 04:52] LABS: Anion Gap 13 mmol/L (10-20); BUN (Urea Nitrogen) 11 mg/dL (8.9-20.6); CK (CPK) 1367 U/L (30-200); Calc. Creatinine Clearance 188 mL/min (70-130); Calcium 8.8 mg/dL (7.8-10.44); Carbon Dioxide 26 mmol/L (22-29); Chloride 106 mmol/L (98-107); Glucose 110 mg/dL (70-105); Magnesium 1.9 mg/dL (1.6-2.6); Phosphorus 3.6 mg/dL (2.3-4.7); Potassium 3.7 mmol/L (3.5-5.1); Sodium 141 mmol/L (136-145)
[2020-07-08 06:14] LABS: #Eosinphils 0.1 thou/uL (0.0-0.7); #Lymphocytes 1.9 thou/uL (1.20-3.40); #Monocytes 0.9 thou/uL (0.11-0.59); #Neutrophils 8.2 thou/uL (1.40-6.50); %Basophils 0.3 % (0.0-1.0); %Eosinophils 1.1 % (0.0-10.0); %Lymphocytes 17.1 % (21.0-51.0); %Monocytes 7.9 % (0.0-10.0); %Neutrophils 73.6 % (42.0-75.0); Anisocytosis SLIGHT = 6-15 cells (100X) (0-5/hpf); Hemoglobin 9.3 g/dL (14.0-18.0); MDiff Complete? YES; Mean Corpuscular HGB CONC 34.1 g/dL (32.0-36.0); Mean Corpuscular Hemoglobin 31.9 pg (27.0-31.0); Mean Corpuscular Volume 93.5 fL (78.0-98.0); Mean Platelet Volume 7.5 fL (7.4-10.4); Platelet Count 245 thou/uL (130-400); RBC Distribution Width 12.2 % (11.5-14.5); White Blood Cell (WBC) Count 11.1 thou/uL (4.8-10.8)
[2020-07-08] MEDS: POTASSIUM CHLORIDE IV SCH (07:07)
[2020-07-08] MEDS: DEXTROSE 5% IV SCH (07:07)
[2020-07-08] MEDS: WATER IV SCH (07:07)
[2020-07-08] MEDS: SODIUM CHLORIDE IV SCH (07:07)
[2020-07-08] MEDS: Senokot S 8.6-50 MG TAB PO SCH ×2 (08:20→20:01)
[2020-07-08] MEDS ORDERED: Loperamide HCl 2 MG CAP PO ONE (09:49)
[2020-07-08] MEDS: Ferrous Sulfate 325 MG TAB PO SCH ×2 (10:24→20:01)
[2020-07-08] MEDS: Gabapentin 300 MG CAP PO SCH ×3 (10:24→19:59)
[2020-07-08] MEDS: Chlorhexidine Gluconate 15 ML UDCUP SSP SCH ×2 (10:25→20:01)
[2020-07-08] MEDS: Bacitracin 1 PK TOP SCH ×2 (10:25→20:00)
[2020-07-08] MEDS: Saccharomyces boulardii 250 MG CAP PO SCH (10:25)
[2020-07-08] MEDS: Ascorbic Acid 500 mg Chewable Tablet PO SCH ×2 (10:25→20:01)
[2020-07-08] MEDS: Famotidine/PF 20 mg/2ml Vial SLOW IVP SCH (10:31)
[2020-07-08] MEDS ORDERED: Loperamide HCl 2 MG CAP PO SCH (11:00)
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
--- NOTE | 2020-07-08 12:29 | PDOC.PALFU ---
Palliative Care Follow-up Note Palliative Care confirmed with Trauma services that we will sign off secondary to patient able to convey decisions.
[2020-07-08] MEDS: Famotidine 20 MG TAB PO SCH (20:00)
[2020-07-08] MEDS: Metamucil PACK PO SCH (20:02)
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
[2020-07-09] MEDS: Acetaminophen 650 MG/20.3 ML UDCUP PER TUBE SCH ×4 (00:13→17:08)
[2020-07-09] MEDS: traMADol HCl 50 MG TAB PO SCH ×4 (00:14→17:11)
[2020-07-09] MEDS: Piperacillin/Tazobactam 3.375 GM in Sodium Chloride 0.9% 100 ML IVPB SCH ×4 (02:59→21:15)
[2020-07-09] MEDS: Clindamycin/D5W 600 MG in Premix Bag 1 BAG IVPB SCH ×3 (04:12→20:25)
[2020-07-09 05:59] LABS: Anion Gap 15 mmol/L (10-20); BUN (Urea Nitrogen) 18 mg/dL (8.9-20.6); Calc. Creatinine Clearance 183 mL/min (70-130); Calcium 9.2 mg/dL (7.8-10.44); Carbon Dioxide 25 mmol/L (22-29); Chloride 103 mmol/L (98-107); Glucose 123 mg/dL (70-105); Magnesium 2.1 mg/dL (1.6-2.6); Phosphorus 4.5 mg/dL (2.3-4.7); Potassium 4.1 mmol/L (3.5-5.1); Sodium 139 mmol/L (136-145)
[2020-07-09 06:18] LABS: Band 6 % (5-11); Eosinophils 1 % (0-10); Hemoglobin 10.2 g/dL (14.0-18.0); Lymphocytes 21 % (21-51); MDiff Complete? YES; Mean Corpuscular HGB CONC 33.6 g/dL (32.0-36.0); Mean Corpuscular Hemoglobin 31.2 pg (27.0-31.0); Mean Corpuscular Volume 92.9 fL (78.0-98.0); Mean Platelet Volume 7.2 fL (7.4-10.4); Monocytes 5 % (0-10); Myelocyte 2 % (0-0); Neutrophil 64 % (42-75); Nucleated RBC 1 % (0); Platelet Count 382 thou/uL (130-400); RBC Distribution Width 12.5 % (11.5-14.5); Red Blood Cell (RBC) Count 3.26 mill/uL (4.70-6.10); White Blood Cell (WBC) Count 13.8 thou/uL (4.8-10.8)
[2020-07-09] MEDS ORDERED: Senokot S 8.6-50 MG TAB PO PRN (08:45)
[2020-07-09] MEDS: Chlorhexidine Gluconate 15 ML UDCUP SSP SCH ×2 (09:12→21:17)
[2020-07-09] MEDS: Bacitracin 1 PK TOP SCH ×2 (09:14→21:17)
[2020-07-09] MEDS: Saccharomyces boulardii 250 MG CAP PO SCH (09:15)
[2020-07-09] MEDS: Gabapentin 300 MG CAP PO SCH ×3 (09:16→21:17)
[2020-07-09] MEDS: Famotidine 20 MG TAB PO SCH ×2 (09:16→21:17)
[2020-07-09] MEDS: Ferrous Sulfate 325 MG TAB PO SCH ×2 (09:17→21:17)
[2020-07-09] MEDS: Ascorbic Acid 500 mg Chewable Tablet PO SCH ×2 (09:17→21:17)
[2020-07-09] MEDS: Metamucil PACK PO SCH ×3 (09:17→21:16)
[2020-07-09] MEDS: Cyclobenzaprine 10 MG TAB PO PRN (12:37)
[2020-07-10] MEDS: Acetaminophen 650 MG/20.3 ML UDCUP PER TUBE SCH ×4 (00:46→18:46)
[2020-07-10] MEDS: traMADol HCl 50 MG TAB PO SCH ×3 (00:47→18:45)
[2020-07-10] MEDS: Scopolamine 1.5 mg/72 hour Patch TOP SCH (01:02)
[2020-07-10] MEDS: Piperacillin/Tazobactam 3.375 GM in Sodium Chloride 0.9% 100 ML IVPB SCH ×3 (03:28→18:46)
[2020-07-10] MEDS: Clindamycin/D5W 600 MG in Premix Bag 1 BAG IVPB SCH ×2 (04:20→15:05)
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
[2020-07-10] MEDS: Chlorhexidine Gluconate 15 ML UDCUP SSP SCH (09:23)
[2020-07-10] MEDS: Bacitracin 1 PK TOP SCH (09:24)
[2020-07-10] MEDS: Saccharomyces boulardii 250 MG CAP PO SCH (09:24)
[2020-07-10] MEDS: Gabapentin 300 MG CAP PO SCH ×2 (09:24→18:45)
[2020-07-10] MEDS: Famotidine 20 MG TAB PO SCH (09:24)
[2020-07-10] MEDS: Polyethylene Glycol 3350 17 GM Packet PO PRN (09:25)
[2020-07-10] MEDS: Ferrous Sulfate 325 MG TAB PO SCH (09:26)
[2020-07-10] MEDS: Ascorbic Acid 500 mg Chewable Tablet PO SCH (09:26)
[2020-07-10] MEDS: Metamucil PACK PO SCH (09:32)
[2020-07-10] MEDS ORDERED: PHENYLEPHRINE-NS 100 MCG/ML 10 ML SYRINGE ONE (09:40)
[2020-07-10] MEDS ORDERED: Bupivacaine HCl 0.5%/Epinephrine 1:200,000/PF 30 ml Vial ONE (09:40)
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
[2020-07-10] MEDS ORDERED: Fentanyl 100 MCG/2 ML VIAL ONE ×4 (16:16→23:48)
[2020-07-10] MEDS ORDERED: Bacitracin Zinc Ointment 30 gm TUBE ONE (16:41)
[2020-07-10] MEDS ORDERED: Sodium Chloride 0.9% 0 ML ONE (16:41)
[2020-07-10] MEDS ORDERED: Bupivacaine PF 0.5% 30 ML VIAL ONE (16:41)
[2020-07-10] MEDS ORDERED: Propofol 500 MG/50 ML VIAL ONE (16:47)
[2020-07-10] MEDS ORDERED: Midazolam HCl 2 mg/2 ml Vial ONE (16:47)
[2020-07-10] MEDS ORDERED: Phenylephrine 10 MG/ML VIAL ONE (18:10)
[2020-07-10] MEDS ORDERED: Piperacillin/Tazobactam 3.375 GM VIAL ONE (20:58)
[2020-07-10] MEDS ORDERED: Promethazine HCl 25 MG/ML VIAL SLOW IVP PRN (23:19)
[2020-07-10] MEDS ORDERED: Ondansetron HCl/PF 4 MG/2 ML Vial IVP PRN (23:19)
[2020-07-10] MEDS ORDERED: Promethazine HCl 25 MG/ML VIAL IM PRN (23:19)
[2020-07-11] MEDS: Piperacillin/Tazobactam 3.375 GM in Sodium Chloride 0.9% 100 ML IVPB SCH ×5 (00:22→21:16)
[2020-07-11] MEDS: Clindamycin/D5W 600 MG in Premix Bag 1 BAG IVPB SCH (00:22)
[2020-07-11] MEDS: Chlorhexidine Gluconate 15 ML UDCUP SSP SCH ×3 (00:23→21:17)
[2020-07-11] MEDS: Gabapentin 300 MG CAP PO SCH ×4 (00:23→21:17)
[2020-07-11] MEDS: Ferrous Sulfate 325 MG TAB PO SCH ×3 (00:23→21:17)
[2020-07-11] MEDS: Ascorbic Acid 500 mg Chewable Tablet PO SCH ×3 (00:23→21:18)
[2020-07-11] MEDS: Bacitracin 1 PK TOP SCH ×3 (00:23→21:17)
[2020-07-11] MEDS: Famotidine 20 MG TAB PO SCH ×3 (00:23→21:18)
[2020-07-11] MEDS: Metamucil PACK PO SCH ×3 (00:24→21:18)
[2020-07-11] MEDS: Acetaminophen 650 MG/20.3 ML UDCUP PER TUBE SCH ×6 (00:31→23:48)
[2020-07-11] MEDS: traMADol HCl 50 MG TAB PO SCH ×6 (00:32→23:49)
[2020-07-11] MEDS: Cyclobenzaprine 10 MG TAB PO PRN ×3 (02:54→22:05)
[2020-07-11 06:25] LABS: Band 12 % (5-11); Eosinophils 1 % (0-10); Hemoglobin 9.9 g/dL (14.0-18.0); Lymphocytes 6 % (21-51); MDiff Complete? YES; Mean Corpuscular HGB CONC 32.8 g/dL (32.0-36.0); Mean Corpuscular Hemoglobin 31.7 pg (27.0-31.0); Mean Corpuscular Volume 96.6 fL (78.0-98.0); Mean Platelet Volume 6.7 fL (7.4-10.4); Monocytes 5 % (0-10); Myelocyte 1 % (0-0); Neutrophil 74 % (42-75); Platelet Count 506 thou/uL (130-400); Platelet Morphology Comment Appears Increased; RBC Distribution Width 13.6 % (11.5-14.5); Reactive Lymphocytes 1 % (0-10); Red Blood Cell (RBC) Count 3.12 mill/uL (4.70-6.10); White Blood Cell (WBC) Count 18.9 thou/uL (4.8-10.8)
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
--- NOTE | 2020-07-11 07:57 | RAD ---
Exam: XR Hand Lt 2 View HISTORY: ORIF COMPARISON: CT left wrist 07/05/2020 FINDINGS/IMPRESSION: There are extensive postoperative changes of the left wrist, and there has been removal of the scapho id bone. Multiple screws overlie the carpal bones with a single long pin overlying the carpal bones. Multiple pins transfix a comminuted fracture involving the base of the metacarpal of the thumb . There is partial visualization of a plate and screws transfixing the ulna with pins overlying the distal radius. Correlation with intraoperative findings is recommended.
[2020-07-11] MEDS: Saccharomyces boulardii 250 MG CAP PO SCH (09:13)
[2020-07-12] MEDS: Piperacillin/Tazobactam 3.375 GM in Sodium Chloride 0.9% 100 ML IVPB SCH ×2 (03:14→08:27)
[2020-07-12] MEDS: Acetaminophen 650 MG/20.3 ML UDCUP PER TUBE SCH ×3 (04:04→16:40)
[2020-07-12] MEDS: traMADol HCl 50 MG TAB PO SCH ×3 (05:32→18:30)
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
[2020-07-12 07:46] LABS: #Basophils 0.1 thou/uL (0.0-0.2); #Eosinphils 0.3 thou/uL (0.0-0.7); #Lymphocytes 1.5 thou/uL (1.20-3.40); #Monocytes 1.3 thou/uL (0.11-0.59); %Basophils 0.4 % (0.0-1.0); %Eosinophils 1.6 % (0.0-10.0); %Lymphocytes 8.8 % (21.0-51.0); %Monocytes 7.4 % (0.0-10.0); %Neutrophils 81.8 % (42.0-75.0); Hemoglobin 9.6 g/dL (14.0-18.0); Mean Corpuscular HGB CONC 32.3 g/dL (32.0-36.0); Mean Corpuscular Hemoglobin 31.4 pg (27.0-31.0); Mean Platelet Volume 6.5 fL (7.4-10.4); Platelet Count 517 thou/uL (130-400); RBC Distribution Width 13.5 % (11.5-14.5); Red Blood Cell (RBC) Count 3.06 mill/uL (4.70-6.10); White Blood Cell (WBC) Count 17.1 thou/uL (4.8-10.8)
[2020-07-12 08:11] LABS: Anion Gap 14 mmol/L (10-20); BUN (Urea Nitrogen) 20 mg/dL (8.9-20.6); Calc. Creatinine Clearance 201 mL/min (70-130); Calcium 9.1 mg/dL (7.8-10.44); Carbon Dioxide 26 mmol/L (22-29); Chloride 104 mmol/L (98-107); Glucose 125 mg/dL (70-105); Magnesium 2.1 mg/dL (1.6-2.6); Phosphorus 3.2 mg/dL (2.3-4.7); Potassium 4.1 mmol/L (3.5-5.1); Sodium 140 mmol/L (136-145)
[2020-07-12] MEDS: Saccharomyces boulardii 250 MG CAP PO SCH (08:24)
[2020-07-12] MEDS: Chlorhexidine Gluconate 15 ML UDCUP SSP SCH ×2 (08:24→21:07)
[2020-07-12] MEDS: Bacitracin 1 PK TOP SCH ×2 (08:24→21:06)
[2020-07-12] MEDS: Gabapentin 300 MG CAP PO SCH ×3 (08:25→21:07)
[2020-07-12] MEDS: Ferrous Sulfate 325 MG TAB PO SCH ×2 (08:25→21:07)
[2020-07-12] MEDS: Metamucil PACK PO SCH ×2 (08:27→21:09)
[2020-07-12] MEDS: Famotidine 20 MG TAB PO SCH ×2 (08:27→21:07)
[2020-07-12] MEDS: Ascorbic Acid 500 mg Chewable Tablet PO SCH ×2 (08:27→21:06)
[2020-07-12] MEDS ORDERED: Sodium Chloride 0.65% Nasal 44 ML BOT EA NARE PRN (08:30)
--- NOTE | 2020-07-12 08:48 | RAD ---
Exam: Chest one view HISTORY:Increased white blood cell Comparison: 07/07/2020 FINDINGS: Lines and tubes: Stable tracheostomy Cardiac silhouette: Normal Aorta: Unremarkable Pulmonary vessels: Normal Costophrenic angles: Clear LUNGS: Stable multifocal interstitial and alveolar opacities. Pneumothorax: None Osseous abnormalities: None IMPRESSION: No significant interval change.
--- NOTE | 2020-07-12 10:03 | ULT ---
BILATERAL LOWER EXTREMITY VENOUS DOPPLER ULTRASOUND: HISTORY: Bilateral lower extremity edema and pain. TECHNIQUE: Carpenter scale ultrasound with color flow and spectral Doppler imaging of the deep venous systems of the lower extremities was performed bilaterally. FINDINGS: There is good flow, compression, and augmentation noted in the common femoral, femoral, deep femoral, popliteal, posterior tibial, and greater saphenous veins. IMPRESSION: No evidence of deep vein thrombosis in either lower extremity. POS: AH
[2020-07-12] MEDS: Enoxaparin Sodium 40 MG/0.4 ML SYRINGE SC SCH (11:11)
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
[2020-07-12] MEDS: Cyclobenzaprine 10 MG TAB PO PRN (21:07)
[2020-07-13] MEDS: Acetaminophen 650 MG/20.3 ML UDCUP PER TUBE SCH ×5 (00:01→23:31)
[2020-07-13] MEDS: traMADol HCl 50 MG TAB PO SCH ×5 (00:02→23:29)
[2020-07-13] MEDS: Scopolamine 1.5 mg/72 hour Patch TOP SCH (02:10)
[2020-07-13 06:28] LABS: #Basophils 0.1 thou/uL (0.0-0.2); #Eosinphils 0.4 thou/uL (0.0-0.7); #Lymphocytes 2.2 thou/uL (1.20-3.40); #Monocytes 1.2 thou/uL (0.11-0.59); #Neutrophils 11.9 thou/uL (1.40-6.50); %Basophils 0.3 % (0.0-1.0); %Eosinophils 2.5 % (0.0-10.0); %Monocytes 7.8 % (0.0-10.0); %Neutrophils 75.4 % (42.0-75.0); Hemoglobin 10.2 g/dL (14.0-18.0); Mean Corpuscular HGB CONC 32.5 g/dL (32.0-36.0); Mean Corpuscular Hemoglobin 31.9 pg (27.0-31.0); Mean Corpuscular Volume 98.1 fL (78.0-98.0); Mean Platelet Volume 6.7 fL (7.4-10.4); Platelet Count 611 thou/uL (130-400); RBC Distribution Width 13.2 % (11.5-14.5); White Blood Cell (WBC) Count 15.7 thou/uL (4.8-10.8)
[2020-07-13 06:52] LABS: Anion Gap 14 mmol/L (10-20); BUN (Urea Nitrogen) 21 mg/dL (8.9-20.6); Calc. Creatinine Clearance 198 mL/min (70-130); Calcium 9.5 mg/dL (7.8-10.44); Carbon Dioxide 27 mmol/L (22-29); Chloride 101 mmol/L (98-107); Glucose 130 mg/dL (70-105); Magnesium 2.1 mg/dL (1.6-2.6); Potassium 4.1 mmol/L (3.5-5.1); Sodium 138 mmol/L (136-145)
[2020-07-13] MEDS: Ascorbic Acid 500 mg Chewable Tablet PO SCH ×2 (08:02→20:43)
[2020-07-13] MEDS: Cyclobenzaprine 10 MG TAB PO PRN ×2 (08:02→20:43)
[2020-07-13] MEDS: Chlorhexidine Gluconate 15 ML UDCUP SSP SCH ×2 (08:02→20:43)
[2020-07-13] MEDS: Saccharomyces boulardii 250 MG CAP PO SCH (08:02)
[2020-07-13] MEDS: Ferrous Sulfate 325 MG TAB PO SCH ×2 (08:02→20:45)
[2020-07-13] MEDS: Enoxaparin Sodium 40 MG/0.4 ML SYRINGE SC SCH (08:03)
[2020-07-13] MEDS: Gabapentin 300 MG CAP PO SCH ×3 (08:03→20:43)
[2020-07-13] MEDS: Bacitracin 1 PK TOP SCH ×2 (08:03→20:45)
[2020-07-13] MEDS: Famotidine 20 MG TAB PO SCH ×2 (08:03→20:44)
[2020-07-13] MEDS: Metamucil PACK PO SCH ×2 (08:05→20:45)
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
[2020-07-14] MEDS: traMADol HCl 50 MG TAB PO SCH ×3 (05:47→18:01)
[2020-07-14] MEDS: Acetaminophen 650 MG/20.3 ML UDCUP PER TUBE SCH ×3 (05:58→18:01)
[2020-07-14 05:59] LABS: #Basophils 0.1 thou/uL (0.0-0.2); #Eosinphils 0.4 thou/uL (0.0-0.7); #Lymphocytes 2.6 thou/uL (1.20-3.40); #Neutrophils 11.7 thou/uL (1.40-6.50); %Basophils 0.4 % (0.0-1.0); %Eosinophils 2.3 % (0.0-10.0); %Lymphocytes 16.7 % (21.0-51.0); %Monocytes 6.1 % (0.0-10.0); %Neutrophils 74.6 % (42.0-75.0); Hemoglobin 10.2 g/dL (14.0-18.0); Mean Corpuscular HGB CONC 31.5 g/dL (32.0-36.0); Mean Corpuscular Hemoglobin 30.6 pg (27.0-31.0); Mean Platelet Volume 6.5 fL (7.4-10.4); Platelet Count 731 thou/uL (130-400); RBC Distribution Width 13.2 % (11.5-14.5); Red Blood Cell (RBC) Count 3.32 mill/uL (4.70-6.10); White Blood Cell (WBC) Count 15.7 thou/uL (4.8-10.8)
[2020-07-14] MEDS: Enoxaparin Sodium 40 MG/0.4 ML SYRINGE SC SCH (09:22)
[2020-07-14] MEDS: Ferrous Sulfate 325 MG TAB PO SCH ×2 (09:22→21:55)
[2020-07-14] MEDS: Saccharomyces boulardii 250 MG CAP PO SCH (09:22)
[2020-07-14] MEDS: Gabapentin 300 MG CAP PO SCH ×3 (09:22→21:56)
[2020-07-14] MEDS: Ascorbic Acid 500 mg Chewable Tablet PO SCH ×2 (09:22→21:56)
[2020-07-14] MEDS: Famotidine 20 MG TAB PO SCH ×2 (09:22→21:56)
[2020-07-14] MEDS: Metamucil PACK PO SCH ×2 (09:23→21:57)
[2020-07-14] MEDS: Chlorhexidine Gluconate 15 ML UDCUP SSP SCH ×2 (09:25→21:55)
[2020-07-14] MEDS: Bacitracin 1 PK TOP SCH ×2 (09:25→21:55)
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
[2020-07-15] MEDS: traMADol HCl 50 MG TAB PO SCH ×5 (00:26→23:53)
[2020-07-15] MEDS: Acetaminophen 650 MG/20.3 ML UDCUP PER TUBE SCH ×5 (00:26→23:52)
[2020-07-15] MEDS: Gabapentin 300 MG CAP PO SCH ×3 (09:16→21:13)
[2020-07-15] MEDS: Ascorbic Acid 500 mg Chewable Tablet PO SCH ×2 (09:20→21:13)
[2020-07-15] MEDS: Ferrous Sulfate 325 MG TAB PO SCH ×2 (09:20→21:12)
[2020-07-15] MEDS: Famotidine 20 MG TAB PO SCH ×2 (09:20→21:12)
[2020-07-15] MEDS: Metamucil PACK PO SCH ×2 (09:21→21:13)
[2020-07-15] MEDS: Enoxaparin Sodium 40 MG/0.4 ML SYRINGE SC SCH (09:21)
[2020-07-15] MEDS: Bacitracin 1 PK TOP SCH ×2 (09:21→21:13)
[2020-07-15] MEDS: Saccharomyces boulardii 250 MG CAP PO SCH (09:21)
[2020-07-15] MEDS: Chlorhexidine Gluconate 15 ML UDCUP SSP SCH ×2 (09:21→21:12)
[2020-07-15] MEDS: Micafungin 100 MG in Sodium Chloride 0.9% 100 ML IVPB SCH (10:08)
[2020-07-16] MEDS: Cyclobenzaprine 10 MG TAB PO PRN ×2 (03:20→21:50)
[2020-07-16] MEDS: Scopolamine 1.5 mg/72 hour Patch TOP SCH (03:47)
[2020-07-16] MEDS: traMADol HCl 50 MG TAB PO SCH ×4 (05:20→23:31)
[2020-07-16] MEDS: Acetaminophen 650 MG/20.3 ML UDCUP PER TUBE SCH ×4 (05:20→23:29)
[2020-07-16 05:41] LABS: #Basophils 0.1 thou/uL (0.0-0.2); #Eosinphils 0.3 thou/uL (0.0-0.7); #Lymphocytes 2.8 thou/uL (1.20-3.40); #Neutrophils 10.9 thou/uL (1.40-6.50); %Basophils 0.7 % (0.0-1.0); %Eosinophils 2.1 % (0.0-10.0); %Lymphocytes 18.2 % (21.0-51.0); %Monocytes 6.5 % (0.0-10.0); %Neutrophils 72.5 % (42.0-75.0); Hemoglobin 10.7 g/dL (14.0-18.0); Mean Corpuscular HGB CONC 31.3 g/dL (32.0-36.0); Mean Corpuscular Hemoglobin 30.1 pg (27.0-31.0); Mean Corpuscular Volume 96.2 fL (78.0-98.0); Mean Platelet Volume 6.2 fL (7.4-10.4); Platelet Count 800 thou/uL (130-400); RBC Distribution Width 13.2 % (11.5-14.5); Red Blood Cell (RBC) Count 3.57 mill/uL (4.70-6.10); White Blood Cell (WBC) Count 15.1 thou/uL (4.8-10.8)
[2020-07-16 06:02] LABS: Anion Gap 13 mmol/L (10-20); BUN (Urea Nitrogen) 19 mg/dL (8.9-20.6); Calc. Creatinine Clearance 189 mL/min (70-130); Calcium 9.6 mg/dL (7.8-10.44); Carbon Dioxide 30 mmol/L (22-29); Chloride 99 mmol/L (98-107); Glucose 122 mg/dL (70-105); Magnesium 2.1 mg/dL (1.6-2.6); Phosphorus 4.1 mg/dL (2.3-4.7); Sodium 138 mmol/L (136-145)
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
--- NOTE | 2020-07-16 07:44 | RAD ---
Chest one view HISTORY: Leukocytosis. Follow-up. COMPARISON: 07/12/2020. FINDINGS: Cardiac silhouette is magnified by projection. Pulmonary vasculature is unremarkable. Oblique linear opacity projecting over the right lateral hilar level is more focal and on the prior s tudy. Right hemidiaphragm elevation is unchanged. The scattered areas of parenchymal infiltrate on the prior study are much less pronounced. No lobar consolidation or evidence of pneumothorax. Tracheostomy appliance no longer visible. IMPRESSION : Near complete clearing of bilateral infiltrates. Residual scarring near the right hilum. Interval removal of the tracheostomy appliance. No new abnormalities are apparent.
[2020-07-16] MEDS: Gabapentin 300 MG CAP PO SCH ×3 (09:24→21:41)
[2020-07-16] MEDS: Chlorhexidine Gluconate 15 ML UDCUP SSP SCH ×2 (09:24→21:55)
[2020-07-16] MEDS: Famotidine 20 MG TAB PO SCH ×2 (09:25→21:41)
[2020-07-16] MEDS: Ferrous Sulfate 325 MG TAB PO SCH ×2 (09:25→21:41)
[2020-07-16] MEDS: Saccharomyces boulardii 250 MG CAP PO SCH (09:26)
[2020-07-16] MEDS: Ascorbic Acid 500 mg Chewable Tablet PO SCH ×2 (09:26→21:41)
[2020-07-16] MEDS: Metamucil PACK PO SCH ×2 (09:26→21:56)
[2020-07-16] MEDS: Micafungin 100 MG in Sodium Chloride 0.9% 100 ML IVPB SCH (09:27)
[2020-07-16] MEDS: Enoxaparin Sodium 40 MG/0.4 ML SYRINGE SC SCH (09:27)
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
[2020-07-17] MEDS: Acetaminophen 650 MG/20.3 ML UDCUP PER TUBE SCH ×4 (04:40→23:41)
[2020-07-17] MEDS: Metamucil PACK PO SCH (04:41)
[2020-07-17 05:56] LABS: #Basophils 0.1 thou/uL (0.0-0.2); #Eosinphils 0.3 thou/uL (0.0-0.7); #Lymphocytes 2.7 thou/uL (1.20-3.40); #Monocytes 1.1 thou/uL (0.11-0.59); #Neutrophils 8.8 thou/uL (1.40-6.50); %Basophils 0.7 % (0.0-1.0); %Eosinophils 2.2 % (0.0-10.0); %Lymphocytes 20.9 % (21.0-51.0); %Monocytes 8.6 % (0.0-10.0); %Neutrophils 67.6 % (42.0-75.0); Hemoglobin 10.9 g/dL (14.0-18.0); Mean Corpuscular HGB CONC 32.1 g/dL (32.0-36.0); Mean Corpuscular Hemoglobin 30.8 pg (27.0-31.0); Mean Corpuscular Volume 96.1 fL (78.0-98.0); Mean Platelet Volume 6.4 fL (7.4-10.4); Platelet Count 740 thou/uL (130-400); RBC Distribution Width 12.9 % (11.5-14.5); Red Blood Cell (RBC) Count 3.53 mill/uL (4.70-6.10)
[2020-07-17] MEDS: traMADol HCl 50 MG TAB PO SCH ×4 (06:03→23:41)
[2020-07-17] MEDS: Enoxaparin Sodium 40 MG/0.4 ML SYRINGE SC SCH (10:03)
[2020-07-17] MEDS: Gabapentin 300 MG CAP PO SCH ×3 (10:06→20:47)
[2020-07-17] MEDS: Ferrous Sulfate 325 MG TAB PO SCH ×2 (10:06→20:47)
[2020-07-17] MEDS: Famotidine 20 MG TAB PO SCH ×2 (10:06→20:47)
[2020-07-17] MEDS: Chlorhexidine Gluconate 15 ML UDCUP SSP SCH ×2 (10:08→20:47)
[2020-07-17] MEDS: Ascorbic Acid 500 mg Chewable Tablet PO SCH ×2 (10:08→20:47)
[2020-07-17] MEDS: Micafungin 100 MG in Sodium Chloride 0.9% 100 ML IVPB SCH (10:08)
[2020-07-17] MEDS: Saccharomyces boulardii 250 MG CAP PO SCH (10:09)
[2020-07-17] MEDS: Cyclobenzaprine 10 MG TAB PO PRN (20:47)
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
[2020-07-18 05:20] LABS: #Eosinphils 0.3 thou/uL (0.0-0.7); #Lymphocytes 2.6 thou/uL (1.20-3.40); #Neutrophils 6.6 thou/uL (1.40-6.50); %Basophils 0.3 % (0.0-1.0); %Eosinophils 2.6 % (0.0-10.0); %Lymphocytes 24.9 % (21.0-51.0); %Monocytes 9.4 % (0.0-10.0); %Neutrophils 62.9 % (42.0-75.0); Mean Corpuscular HGB CONC 30.8 g/dL (32.0-36.0); Mean Corpuscular Hemoglobin 29.8 pg (27.0-31.0); Mean Corpuscular Volume 96.7 fL (78.0-98.0); Mean Platelet Volume 6.4 fL (7.4-10.4); Platelet Count 682 thou/uL (130-400); Red Blood Cell (RBC) Count 3.69 mill/uL (4.70-6.10); White Blood Cell (WBC) Count 10.5 thou/uL (4.8-10.8)
[2020-07-18] MEDS: traMADol HCl 50 MG TAB PO SCH ×4 (05:56→23:42)
[2020-07-18] MEDS: Acetaminophen 500 MG TAB PO SCH ×2 (05:56→12:08)
[2020-07-18] MEDS: Acetaminophen 650 MG/20.3 ML UDCUP PER TUBE SCH (06:02)
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
[2020-07-18] MEDS: Enoxaparin Sodium 40 MG/0.4 ML SYRINGE SC SCH (09:25)
[2020-07-18] MEDS: Saccharomyces boulardii 250 MG CAP PO SCH (09:25)
[2020-07-18] MEDS: Famotidine 20 MG TAB PO SCH ×2 (09:25→20:46)
[2020-07-18] MEDS: Gabapentin 300 MG CAP PO SCH ×3 (09:25→20:47)
[2020-07-18] MEDS: Ascorbic Acid 500 mg Chewable Tablet PO SCH ×2 (09:25→20:46)
[2020-07-18] MEDS: Ferrous Sulfate 325 MG TAB PO SCH ×2 (09:26→20:46)
[2020-07-18] MEDS: Chlorhexidine Gluconate 15 ML UDCUP SSP SCH ×2 (09:26→20:45)
[2020-07-18] MEDS ORDERED: Acetaminophen 500 MG TAB PO SCH ×2 (11:00→17:00)
[2020-07-18] MEDS ORDERED: Acetaminophen 325 MG TAB PO SCH (12:00)
[2020-07-18] MEDS: Acetaminophen 325 MG TAB PO SCH ×2 (17:32→23:42)
[2020-07-18] MEDS ORDERED: Oxymetazoline HCl 0.05% (30 ML BOT) NS PRN (19:00)
[2020-07-18] MEDS ORDERED: Sodium Chloride 0.65% Nasal 44 ML BOT EA NARE PRN (19:01)
[2020-07-18] MEDS: Cyclobenzaprine 10 MG TAB PO PRN (20:46)
[2020-07-19] MEDS: Scopolamine 1.5 mg/72 hour Patch TOP SCH (00:30)
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
[2020-07-19] MEDS: traMADol HCl 50 MG TAB PO SCH ×4 (05:17→23:27)
[2020-07-19] MEDS: Acetaminophen 325 MG TAB PO SCH ×4 (05:18→23:27)
[2020-07-19] MEDS: Chlorhexidine Gluconate 15 ML UDCUP SSP SCH ×2 (08:48→20:25)
[2020-07-19] MEDS: Ascorbic Acid 500 mg Chewable Tablet PO SCH ×2 (08:49→20:25)
[2020-07-19] MEDS: Ferrous Sulfate 325 MG TAB PO SCH ×2 (08:50→20:25)
[2020-07-19] MEDS: Gabapentin 300 MG CAP PO SCH ×3 (08:50→20:25)
[2020-07-19] MEDS: Cyclobenzaprine 10 MG TAB PO PRN ×2 (08:53→17:50)
[2020-07-19] MEDS: Enoxaparin Sodium 40 MG/0.4 ML SYRINGE SC SCH (08:53)
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
[2020-07-19] MEDS: Acetaminophen/Codeine 30-300mg Tablet PO PRN (13:53)
[2020-07-20] MEDS: Acetaminophen 325 MG TAB PO SCH ×3 (04:54→16:32)
[2020-07-20] MEDS: traMADol HCl 50 MG TAB PO SCH ×3 (04:54→16:32)
[2020-07-20] MEDS: Enoxaparin Sodium 40 MG/0.4 ML SYRINGE SC SCH (08:59)
[2020-07-20] MEDS: Chlorhexidine Gluconate 15 ML UDCUP SSP SCH ×2 (08:59→20:53)
[2020-07-20] MEDS: Gabapentin 300 MG CAP PO SCH ×3 (09:00→20:53)
[2020-07-20] MEDS: Ferrous Sulfate 325 MG TAB PO SCH ×2 (09:00→20:53)
[2020-07-20] MEDS: Ascorbic Acid 500 mg Chewable Tablet PO SCH ×2 (09:00→20:53)
[2020-07-21] MEDS: Acetaminophen 325 MG TAB PO SCH ×4 (00:11→16:48)
[2020-07-21] MEDS: traMADol HCl 50 MG TAB PO SCH ×4 (00:12→16:49)
[2020-07-21] MEDS: Enoxaparin Sodium 40 MG/0.4 ML SYRINGE SC SCH (09:40)
[2020-07-21] MEDS: Chlorhexidine Gluconate 15 ML UDCUP SSP SCH ×2 (09:40→21:25)
[2020-07-21] MEDS: Ferrous Sulfate 325 MG TAB PO SCH ×2 (09:41→21:26)
[2020-07-21] MEDS: Gabapentin 300 MG CAP PO SCH ×3 (09:41→21:25)
[2020-07-21] MEDS: Ascorbic Acid 500 mg Chewable Tablet PO SCH ×2 (09:42→21:25)
[2020-07-21] MEDS: Acetaminophen/Codeine 30-300mg Tablet PO PRN (21:24)
[2020-07-22] MEDS: Acetaminophen 325 MG TAB PO SCH ×5 (00:08→23:48)
[2020-07-22] MEDS: traMADol HCl 50 MG TAB PO SCH ×5 (00:08→23:48)
[2020-07-22] MEDS: Scopolamine 1.5 mg/72 hour Patch TOP SCH (02:46)
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
[2020-07-22] MEDS: Enoxaparin Sodium 40 MG/0.4 ML SYRINGE SC SCH (10:24)
[2020-07-22] MEDS: Chlorhexidine Gluconate 15 ML UDCUP SSP SCH ×2 (10:24→20:11)
[2020-07-22] MEDS: Gabapentin 300 MG CAP PO SCH ×3 (10:25→20:11)
[2020-07-22] MEDS: Ascorbic Acid 500 mg Chewable Tablet PO SCH ×2 (10:25→20:11)
[2020-07-22] MEDS: Ferrous Sulfate 325 MG TAB PO SCH ×2 (10:25→20:11)
[2020-07-22] MEDS: Cyclobenzaprine 10 MG TAB PO PRN ×2 (11:12→20:11)
[2020-07-22] MEDS: Polyethylene Glycol 3350 17 GM Packet PO PRN (11:13)
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
[2020-07-22 15:08] VITALS: BMI 26.2
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
[2020-07-23] MEDS: Acetaminophen 325 MG TAB PO SCH ×3 (05:44→17:16)
[2020-07-23] MEDS: traMADol HCl 50 MG TAB PO SCH ×3 (05:44→17:15)
[2020-07-23] MEDS: Chlorhexidine Gluconate 15 ML UDCUP SSP SCH ×2 (09:00→21:32)
[2020-07-23] MEDS: Gabapentin 300 MG CAP PO SCH ×3 (09:00→21:31)
[2020-07-23] MEDS: Ascorbic Acid 500 mg Chewable Tablet PO SCH ×2 (09:00→21:29)
[2020-07-23] MEDS: Ferrous Sulfate 325 MG TAB PO SCH ×2 (09:00→21:29)
[2020-07-23] MEDS: Enoxaparin Sodium 40 MG/0.4 ML SYRINGE SC SCH (09:01)
--- NOTE | 2020-07-23 09:39 | CON ---
DATE OF CONSULTATION: 07/23/2020 HISTORY OF PRESENT ILLNESS: Mr. Morse is now on Lovenox and has tolerated it well. His vena cava filter is approximately 3 weeks out from being placed. I have discussed removal with him and he is agreeable. We will make plans for removal via a right femoral approach tomorrow. Job ID: [id number]
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
[2020-07-23] MEDS: Acetaminophen/Codeine 30-300mg Tablet PO PRN (21:31)
[2020-07-24] MEDS: traMADol HCl 50 MG TAB PO SCH ×5 (00:20→23:38)
[2020-07-24] MEDS: Acetaminophen 325 MG TAB PO SCH ×5 (00:21→23:38)
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
[2020-07-24] MEDS ORDERED: Lidocaine 1% (PF) 30 ML VIAL ONE (06:26)
--- NOTE | 2020-07-24 07:46 | OP ---
DATE OF PROCEDURE: 07/24/2020 PREOPERATIVE DIAGNOSIS: End of life of optional inferior vena cava filter. POSTOPERATIVE DIAGNOSIS: End of life of optional inferior vena cava filter. PROCEDURES PERFORMED: 1. Ultrasound-guided left femoral vein access. 2. Inferior vena cavogram. 3. Inferior vena cava filter removal. ANESTHESIA: 1% lidocaine. TOTAL CONTRAST: 4 mL. TOTAL FLUORO TIME: 1 minute. DESCRIPTION OF PROCEDURE: After consent was obtained, the patient was brought to the section laborer and placed in supine position on section laborer table. Appropriate monitoring was placed. Groins were prepped and draped in usual sterile fashion. 1% lidocaine was used to anesthetize the left groin utilizing ultrasound guidance. Using ultrasound guidance, the left common femoral vein was accessed. 6-British sheath was placed. Vena cavogram was then performed through the sheath showing no thrombus. The sheath was upsized to an 11-British sheath. The removal sheath was then placed and snare passed through the removal sheath. Tip of the filter was then snared. Sheath was used to collapse the filter and remove the filter. 11-British sheath was then removed, and manual pressure held for hemostasis. The patient tolerated the procedure well and was transferred back to his room in stable condition. Job ID: [id number]
[2020-07-24] MEDS: Ascorbic Acid 500 mg Chewable Tablet PO SCH ×2 (09:00→20:51)
[2020-07-24] MEDS: Ferrous Sulfate 325 MG TAB PO SCH ×2 (09:00→20:51)
[2020-07-24] MEDS: Chlorhexidine Gluconate 15 ML UDCUP SSP SCH ×2 (09:00→20:51)
[2020-07-24] MEDS: Gabapentin 300 MG CAP PO SCH ×3 (09:01→20:51)
[2020-07-24] MEDS: Enoxaparin Sodium 40 MG/0.4 ML SYRINGE SC SCH (09:01)
[2020-07-24] MEDS: Cyclobenzaprine 10 MG TAB PO PRN ×2 (09:13→21:00)
[2020-07-24] MEDS ORDERED: Iopamidol 370 76% 50 ML VIAL FS ONE (11:05)
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
[2020-07-24] MEDS: Acetaminophen/Codeine 30-300mg Tablet PO PRN (16:26)
[2020-07-24] MEDS: Ibuprofen 600 MG TAB PO PRN (21:00)
[2020-07-25] MEDS: Scopolamine 1.5 mg/72 hour Patch TOP SCH (00:13)
[2020-07-25] MEDS: Acetaminophen 325 MG TAB PO SCH ×4 (05:19→22:45)
[2020-07-25] MEDS: traMADol HCl 50 MG TAB PO SCH ×4 (05:20→22:45)
[2020-07-25] MEDS: Cyclobenzaprine 10 MG TAB PO PRN ×2 (11:02→19:53)
[2020-07-25] MEDS: Ascorbic Acid 500 mg Chewable Tablet PO SCH ×2 (11:02→19:54)
[2020-07-25] MEDS: Enoxaparin Sodium 40 MG/0.4 ML SYRINGE SC SCH (11:02)
[2020-07-25] MEDS: Chlorhexidine Gluconate 15 ML UDCUP SSP SCH ×2 (11:02→19:55)
[2020-07-25] MEDS: Ferrous Sulfate 325 MG TAB PO SCH ×2 (11:02→19:54)
[2020-07-25] MEDS: Gabapentin 300 MG CAP PO SCH ×3 (11:03→19:54)
[2020-07-25] MEDS: Ibuprofen 600 MG TAB PO PRN (12:51)
[2020-07-25] MEDS: Acetaminophen/Codeine 30-300mg Tablet PO PRN ×2 (12:52→19:53)
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
[2020-07-26] MEDS: traMADol HCl 50 MG TAB PO SCH ×4 (05:25→23:30)
[2020-07-26] MEDS: Acetaminophen 325 MG TAB PO SCH ×4 (05:25→23:30)
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
[2020-07-26] MEDS: Chlorhexidine Gluconate 15 ML UDCUP SSP SCH ×2 (10:04→20:13)
[2020-07-26] MEDS: Enoxaparin Sodium 40 MG/0.4 ML SYRINGE SC SCH (10:04)
[2020-07-26] MEDS: Ferrous Sulfate 325 MG TAB PO SCH ×2 (10:05→20:12)
[2020-07-26] MEDS: Ascorbic Acid 500 mg Chewable Tablet PO SCH ×2 (10:05→20:12)
[2020-07-26] MEDS: Gabapentin 300 MG CAP PO SCH ×3 (10:05→20:12)
[2020-07-26] MEDS: Acetaminophen/Codeine 30-300mg Tablet PO PRN ×2 (10:05→15:58)
[2020-07-26] MEDS: Cyclobenzaprine 10 MG TAB PO PRN ×2 (10:06→18:14)
--- NOTE | 2020-07-26 10:11 | ULT ---
EXAM: Bilateral lower extremity venous ultrasound HISTORY: Bilateral lower extremity pain and edema COMPARISON: 07/12/2020 TECHNIQUE: Multiplanar grayscale and color Doppler images were obtained in a bilateral lower extremit y venous ultrasound. Spectral analysis of the Doppler waveforms were performed. FINDINGS: The bilateral common femoral vein, profunda femoral veins, superficial femoral veins, and p opliteal veins are normal in appearance without visible thrombus. These vessels demonstrate normal compression, flow, and augmentation. The bilateral posterior tibial veins and greater saphenous veins are patent without evidence of throm bus. IMPRESSION: No evidence of DVT.
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
[2020-07-27] MEDS: traMADol HCl 50 MG TAB PO SCH ×3 (05:05→17:30)
[2020-07-27] MEDS: Acetaminophen 325 MG TAB PO SCH ×3 (05:06→17:30)
[2020-07-27] MEDS: Ferrous Sulfate 325 MG TAB PO SCH ×2 (08:46→21:57)
[2020-07-27] MEDS: Gabapentin 300 MG CAP PO SCH ×4 (08:47→21:58)
[2020-07-27] MEDS: Ascorbic Acid 500 mg Chewable Tablet PO SCH ×3 (08:47→21:59)
[2020-07-27] MEDS: Enoxaparin Sodium 40 MG/0.4 ML SYRINGE SC SCH (08:47)
[2020-07-27] MEDS: Chlorhexidine Gluconate 15 ML UDCUP SSP SCH ×2 (08:47→21:57)
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
[2020-07-27] MEDS: cloNIDine 0.1 MG TAB PO SCH (21:58)
[2020-07-27] MEDS: pyridOXINE 50 MG (B6) TAB PO SCH (21:58)
[2020-07-28] MEDS: Scopolamine 1.5 mg/72 hour Patch TOP SCH (00:15)
[2020-07-28] MEDS: Acetaminophen 325 MG TAB PO SCH ×4 (00:16→17:11)
[2020-07-28] MEDS: traMADol HCl 50 MG TAB PO SCH ×4 (00:16→17:11)
[2020-07-28] MEDS: Ascorbic Acid 500 mg Chewable Tablet PO SCH ×4 (10:19→21:37)
[2020-07-28] MEDS: Chlorhexidine Gluconate 15 ML UDCUP SSP SCH ×2 (10:20→21:37)
[2020-07-28] MEDS: cloNIDine 0.1 MG TAB PO SCH ×2 (10:20→21:35)
[2020-07-28] MEDS: Ferrous Sulfate 325 MG TAB PO SCH ×2 (10:20→21:36)
[2020-07-28] MEDS: Gabapentin 300 MG CAP PO SCH ×4 (10:20→21:36)
[2020-07-28] MEDS: pyridOXINE 50 MG (B6) TAB PO SCH ×2 (10:20→21:36)
[2020-07-28] MEDS: Enoxaparin Sodium 40 MG/0.4 ML SYRINGE SC SCH (10:21)
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
[2020-07-29] MEDS: Acetaminophen 325 MG TAB PO SCH ×5 (00:08→23:05)
[2020-07-29] MEDS: traMADol HCl 50 MG TAB PO SCH ×5 (00:09→23:04)
[2020-07-29] MEDS: Enoxaparin Sodium 40 MG/0.4 ML SYRINGE SC SCH (09:19)
[2020-07-29] MEDS: Chlorhexidine Gluconate 15 ML UDCUP SSP SCH ×2 (09:19→20:10)
[2020-07-29] MEDS: cloNIDine 0.1 MG TAB PO SCH ×2 (09:20→20:11)
[2020-07-29] MEDS: Ferrous Sulfate 325 MG TAB PO SCH ×2 (09:20→20:11)
[2020-07-29] MEDS: pyridOXINE 50 MG (B6) TAB PO SCH ×2 (09:20→20:11)
[2020-07-29] MEDS: Gabapentin 300 MG CAP PO SCH ×4 (09:21→20:10)
[2020-07-29] MEDS: Ascorbic Acid 500 mg Chewable Tablet PO SCH ×2 (09:22→20:10)
[2020-07-30] MEDS: Acetaminophen 325 MG TAB PO SCH ×4 (04:58→22:55)
[2020-07-30] MEDS: traMADol HCl 50 MG TAB PO SCH ×4 (05:00→22:55)
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
[2020-07-30] MEDS: Chlorhexidine Gluconate 15 ML UDCUP SSP SCH ×2 (10:13→20:22)
[2020-07-30] MEDS: Enoxaparin Sodium 40 MG/0.4 ML SYRINGE SC SCH (10:13)
[2020-07-30] MEDS: Ascorbic Acid 500 mg Chewable Tablet PO SCH ×2 (10:13→20:23)
[2020-07-30] MEDS: Ferrous Sulfate 325 MG TAB PO SCH ×2 (10:13→20:23)
[2020-07-30] MEDS: cloNIDine 0.1 MG TAB PO SCH ×2 (10:13→20:22)
[2020-07-30] MEDS: pyridOXINE 50 MG (B6) TAB PO SCH ×2 (10:13→20:23)
[2020-07-30] MEDS: Gabapentin 300 MG CAP PO SCH ×4 (10:14→20:23)
[2020-07-30] MEDS: Cyclobenzaprine 10 MG TAB PO PRN (18:29)
[2020-07-30] MEDS: Ibuprofen 600 MG TAB PO PRN (20:25)
[2020-07-31] MEDS: Scopolamine 1.5 mg/72 hour Patch TOP SCH (03:55)
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
[2020-07-31] MEDS: Acetaminophen 325 MG TAB PO SCH ×3 (05:26→18:04)
[2020-07-31] MEDS: traMADol HCl 50 MG TAB PO SCH ×3 (05:26→18:05)
[2020-07-31] MEDS: Cyclobenzaprine 10 MG TAB PO PRN ×2 (09:58→18:03)
[2020-07-31] MEDS: Ascorbic Acid 500 mg Chewable Tablet PO SCH ×2 (09:58→19:46)
[2020-07-31] MEDS: pyridOXINE 50 MG (B6) TAB PO SCH ×2 (09:58→19:45)
[2020-07-31] MEDS: Chlorhexidine Gluconate 15 ML UDCUP SSP SCH ×2 (09:58→19:45)
[2020-07-31] MEDS: cloNIDine 0.1 MG TAB PO SCH ×2 (09:58→19:45)
[2020-07-31] MEDS: Ferrous Sulfate 325 MG TAB PO SCH ×2 (09:58→19:46)
[2020-07-31] MEDS: Ibuprofen 600 MG TAB PO PRN ×2 (09:59→19:46)
[2020-07-31] MEDS: Enoxaparin Sodium 40 MG/0.4 ML SYRINGE SC SCH (09:59)
[2020-07-31] MEDS: Gabapentin 300 MG CAP PO SCH ×4 (09:59→19:46)
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
[2020-08-01] MEDS: traMADol HCl 50 MG TAB PO SCH ×3 (02:03→12:23)
[2020-08-01] MEDS: Acetaminophen 325 MG TAB PO SCH ×3 (02:03→12:27)
[2020-08-01] MEDS: Ascorbic Acid 500 mg Chewable Tablet PO SCH (08:08)
[2020-08-01] MEDS: cloNIDine 0.1 MG TAB PO SCH (08:08)
[2020-08-01] MEDS: Chlorhexidine Gluconate 15 ML UDCUP SSP SCH (08:09)
[2020-08-01] MEDS: pyridOXINE 50 MG (B6) TAB PO SCH (08:09)
[2020-08-01] MEDS: Gabapentin 300 MG CAP PO SCH ×2 (08:09→12:28)
[2020-08-01] MEDS: Enoxaparin Sodium 40 MG/0.4 ML SYRINGE SC SCH (08:09)
[2020-08-01] MEDS: Cyclobenzaprine 10 MG TAB PO PRN (08:09)
[2020-08-01] MEDS: Ferrous Sulfate 325 MG TAB PO SCH (08:09)
[2020-08-01 16:14] VITALS: BP 118/75; TEMP 98
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
== END 2020-08-01 16:36 | disposition home or self-care (01) | DRG 3 ==
LOC: ERS 20:18 → EDBD 21:33 → CCU 21:33 → EEVIPCON 21:33 → SURG A 07-08 14:25
PROVIDERS: ADMIT Surgery; ATTEND Surgery
PROC: 5A1955Z Respiratory Ventilation, Greater than 96 Consecutive Hours (ICD-10-PCS; 2020-07-02)
PROC: 0W9930Z Drainage of Right Pleural Cavity with Drainage Device, Percutaneous Approach (ICD-10-PCS; 2020-07-02)
PROC: 0PSHXZZ Reposition Right Radius, External Approach (ICD-10-PCS; 2020-07-02)
PROC: 0PSKXZZ Reposition Right Ulna, External Approach (ICD-10-PCS; 2020-07-02)
PROC: 0PSJ04Z Reposition Left Radius with Internal Fixation Device, Open Approach (ICD-10-PCS; principal; 2020-07-03)
PROC: 0PSL04Z Reposition Left Ulna with Internal Fixation Device, Open Approach (ICD-10-PCS; 2020-07-03)
PROC: 0QS304Z Reposition Left Pelvic Bone with Internal Fixation Device, Open Approach (ICD-10-PCS; 2020-07-03)
PROC: 0QS204Z Reposition Right Pelvic Bone with Internal Fixation Device, Open Approach (ICD-10-PCS; 2020-07-03)
PROC: 0QS Lower Bones, Reposition (ICD-10-PCS; 2020-07-03)
PROC: 30233N1 Transfusion of Nonautologous Red Blood Cells into Peripheral Vein, Percutaneous Approach (ICD-10-PCS; 2020-07-03)
PROC: 0B113F4 Bypass Trachea to Cutaneous with Tracheostomy Device, Percutaneous Approach (ICD-10-PCS; 2020-07-04)
PROC: 0DH63UZ Insertion of Feeding Device into Stomach, Percutaneous Approach (ICD-10-PCS; 2020-07-04)
PROC: 0NSR04Z Reposition Maxilla with Internal Fixation Device, Open Approach (ICD-10-PCS; 2020-07-05)
PROC: 0NSB04Z Reposition Nasal Bone with Internal Fixation Device, Open Approach (ICD-10-PCS; 2020-07-05)
PROC: 0NSM04Z Reposition Right Zygomatic Bone with Internal Fixation Device, Open Approach (ICD-10-PCS; 2020-07-05)
PROC: 0NSN04Z Reposition Left Zygomatic Bone with Internal Fixation Device, Open Approach (ICD-10-PCS; 2020-07-05)
PROC: 06H03DZ Insertion of Intraluminal Device into Inferior Vena Cava, Percutaneous Approach (ICD-10-PCS; 2020-07-05)
PROC: B519ZZZ Fluoroscopy of Inferior Vena Cava (ICD-10-PCS; 2020-07-05)
PROC: 0PSV04Z Reposition Left Finger Phalanx with Internal Fixation Device, Open Approach (ICD-10-PCS; 2020-07-10)
PROC: 0PSN04Z Reposition Left Carpal with Internal Fixation Device, Open Approach (ICD-10-PCS; 2020-07-10)
PROC: 0PBN0ZZ Excision of Left Carpal, Open Approach (ICD-10-PCS; 2020-07-10)
PROC: 3E0T3BZ Introduction of Anesthetic Agent into Peripheral Nerves and Plexi, Percutaneous Approach (ICD-10-PCS; 2020-07-10)
PROC: 06PY3DZ Removal of Intraluminal Device from Lower Vein, Percutaneous Approach (ICD-10-PCS; 2020-07-24)
PROC: B519ZZZ Fluoroscopy of Inferior Vena Cava (ICD-10-PCS; 2020-07-24)
DX: S52.502B Unspecified fracture of the lower end of left radius, initial encounter for open fracture type I or II (principal); S32.810B Multiple fractures of pelvis with stable disruption of pelvic ring, initial encounter for open fracture; S06.6X9A Traumatic subarachnoid hemorrhage with loss of consciousness of unspecified duration, initial encounter; J96.00 Acute respiratory failure, unspecified whether with hypoxia or hypercapnia; J69.0 Pneumonitis due to inhalation of food and vomit; R40.2212 Coma scale, best verbal response, none, at arrival to emergency department; S02.40EA Zygomatic fracture, right side, initial encounter for closed fracture; S02.40FA Zygomatic fracture, left side, initial encounter for closed fracture; S02.841A Fracture of lateral orbital wall, right side, initial encounter for closed fracture; S02.832A Fracture of medial orbital wall, left side, initial encounter for closed fracture; S02.831A Fracture of medial orbital wall, right side, initial encounter for closed fracture; S02.842A Fracture of lateral orbital wall, left side, initial encounter for closed fracture; S12.000A Unspecified displaced fracture of first cervical vertebra, initial encounter for closed fracture; S22.20XA Unspecified fracture of sternum, initial encounter for closed fracture; S22.41XA Multiple fractures of ribs, right side, initial encounter for closed fracture; S02.413A LeFort III fracture, initial encounter for closed fracture; S22.32XA Fracture of one rib, left side, initial encounter for closed fracture; S62.002K Unspecified fracture of navicular [scaphoid] bone of left wrist, subsequent encounter for fracture with nonunion; S36.114A Minor laceration of liver, initial encounter; S27.0XXA Traumatic pneumothorax, initial encounter; S27.322A Contusion of lung, bilateral, initial encounter; E87.2 Acidosis; D62 Acute posthemorrhagic anemia; J95.851 Ventilator associated pneumonia; S52.232B Displaced oblique fracture of shaft of left ulna, initial encounter for open fracture type I or II; Z23 Encounter for immunization; Z20.828 Contact with and (suspected) exposure to other viral communicable diseases; S62.112A Displaced fracture of triquetrum [cuneiform] bone, left wrist, initial encounter for closed fracture; S62.502A Fracture of unspecified phalanx of left thumb, initial encounter for closed fracture; S62.627A Displaced fracture of middle phalanx of left little finger, initial encounter for closed fracture; S01.512A Laceration without foreign body of oral cavity, initial encounter; T79.6XXA Traumatic ischemia of muscle, initial encounter; S01.81XA Laceration without foreign body of other part of head, initial encounter; S02.2XXA Fracture of nasal bones, initial encounter for closed fracture; R40.2352 Coma scale, best motor response, localizes pain, at arrival to emergency department; R40.2142 Coma scale, eyes open, spontaneous, at arrival to emergency department; S01.112A Laceration without foreign body of left eyelid and periocular area, initial encounter; S01.21XA Laceration without foreign body of nose, initial encounter; S01.511A Laceration without foreign body of lip, initial encounter; S62.202A Unspecified fracture of first metacarpal bone, left hand, initial encounter for closed fracture; S62.307A Unspecified fracture of fifth metacarpal bone, left hand, initial encounter for closed fracture; H54.40 Blindness, one eye, unspecified eye; I45.10 Unspecified right bundle-branch block; E83.39 Other disorders of phosphorus metabolism; E87.6 Hypokalemia; E83.42 Hypomagnesemia; D72.829 Elevated white blood cell count, unspecified; D69.6 Thrombocytopenia, unspecified; J04.10 Acute tracheitis without obstruction; Z78.1 Physical restraint status; V20.4XXA Motorcycle driver injured in collision with pedestrian or animal in traffic accident, initial encounter
CPT/HCPCS: 25565; 31624; 32551; 36415; 36416; 36430; 37191; 37193; 51610; 51702; 70450; 70486; 70498; 71045; 71260; 72125; 72170; 72192; 74177; 74450; 76000; 76377; 76942; 80048; 80053; 80076; 80202; 80306; 80307; 81003; 81015; 82550; 82805; 83605; 83735; 84100; 85007; 85025; 85027; 85610; 85730; 86850; 86900; 86901; 87040; 87070; 87077; 87086; 87186; 87205; 87635; 90471; 90715; 93005; 93010; 93306; 93970; 94002; 94003; 94640; 96365; 96366; 96375; 96376; C1713; C1769; G0390; J0690; J0696; J1100; J1644; J1650; J1815; J2001; J2248; J2250; J2370; J2405; J2543; J2704; J3010; J3370; J3475; J3480; J3490; J7030; J7050; J7070; P9016; P9045; Q9967; S0020; S0028; U0002; U0003

== ENCOUNTER 2020-08-08 16:18 | Emergency (ER) | payer OTHER, SELFPAY ==
[2020-08-08 17:18] LABS: #Basophils 0.1 thou/uL (0.0-0.2); #Eosinphils 0.1 thou/uL (0.0-0.7); #Lymphocytes 3.1 thou/uL (1.20-3.40); #Monocytes 0.5 thou/uL (0.11-0.59); #Neutrophils 7.1 thou/uL (1.40-6.50); %Basophils 0.8 % (0.0-1.0); %Eosinophils 1.1 % (0.0-10.0); %Lymphocytes 28.6 % (21.0-51.0); %Neutrophils 64.5 % (42.0-75.0); Hemoglobin 14.4 g/dL (14.0-18.0); Mean Corpuscular Hemoglobin 29.6 pg (27.0-31.0); Mean Corpuscular Volume 92.4 fL (78.0-98.0); Mean Platelet Volume 6.8 fL (7.4-10.4); Platelet Count 363 thou/uL (130-400); RBC Distribution Width 13.2 % (11.5-14.5); Red Blood Cell (RBC) Count 4.88 mill/uL (4.70-6.10); White Blood Cell (WBC) Count 10.9 thou/uL (4.8-10.8)
[2020-08-08 17:33] LABS: Bilirubin Negative (Negative); Blood, Urine Negative (Negative); Clarity Clear (Clear); Glucose, Urine (Dipstick) Normal (Negative); Ketone, Urine Negative (Negative); Leukocyte Negative Leu/uL (Negative); Nitrite Negative (Negative); Protein, Urine (Dipstick) Negative (Neg-Trace); Specific Gravity, Urine 1.013 (1.002-1.036); Urobilinogen Normal mg/dL (Less than 2); pH, Urine 6.5 (5.0-9.0)
[2020-08-08 17:43] LABS: Amphetamine Not Detected (NotDetected); Barbiturates Screen Not Detected (NotDetected); Benzodiazepine Screen Not Detected (NotDetected); Cocaine Metabolite Screen Not Detected (NotDetected); Medtox Control Line Valid? VALID (VALID); Medtox Reader # READER 1; Methadone Not Detected (NotDetected); Methamphetamine Not Detected (NotDetected); Opiate Screen Not Detected (NotDetected); Oxycodone Screen Not Detected (NotDetected); Phencyclidine (PCP) Not Detected (NotDetected); THC/Cannabinoid Screen Not Detected (NotDetected); Tricyclic Screen Not Detected (NotDetected)
[2020-08-08 17:56] LABS: ALT (SGPT) 18 U/L (8-55); AST (SGOT) 13 U/L (5-34); Acetaminophen Less than 6.0 mcg/mL (10.0-30.0); Albumin 4.5 g/dL (3.5-5.0); Alcohol Less than 10 mg/dL (Less than 10); Alkaline Phosphatase 111 U/L (40-110); Anion Gap 15 mmol/L (10-20); BUN (Urea Nitrogen) 14 mg/dL (8.9-20.6); Bilirubin, Total 0.4 mg/dL (0.2-1.2); CK (CPK) 28 U/L (30-200); Calc. Creatinine Clearance 0 mL/min (70-130); Calcium 9.7 mg/dL (7.8-10.44); Carbon Dioxide 26 mmol/L (22-29); Chloride 102 mmol/L (98-107); Globulin 3.2 g/dL (2.4-3.5); Glucose 84 mg/dL (70-105); Potassium 3.9 mmol/L (3.5-5.1); Protein, Total 7.7 g/dL (6.0-8.3); Salicylate Less than 8.0 mg/dL (15.0-30.0); Sodium 139 mmol/L (136-145)
[2020-08-09] MEDS ORDERED: traMADol HCl 50 MG TAB ONE (00:05)
[2020-08-09] MEDS ORDERED: Gabapentin 100 MG CAP PO SCH (00:30)
== END 2020-08-09 11:55 ==
LOC: ERS 16:18
DX: F32.9 Major depressive disorder, single episode, unspecified (principal); F41.9 Anxiety disorder, unspecified; F17.200 Nicotine dependence, unspecified, uncomplicated
CPT/HCPCS: 36415; 80053; 80306; 80307; 81003; 82550; 84443; 85025; 96372; 99285

== ENCOUNTER 2020-08-14 14:49 | Outpatient (CLI) | payer OTHER ==
--- NOTE | 2020-08-14 15:37 | CT ---
CT HEAD WITHOUT CONTRAST: INDICATION: Followup hemorrhage. FINDINGS: The petechial parenchymal hemorrhages in the anterior frontal lobe seen on the prior exam are no long er apparent. The small subdural along the left parietal convexity is not seen today. Minimal increased density along the left tentorium may represent some residual subdural. There has been significant improvement in the previously noted subdural hematoma. Ventricles are normal size and position. No mass effect or midline shift. IMPRESSION: Significant improvement in the CT head. The parenchymal hemorrhages noted in the anterior frontal lo bes on prior exam are no longer present. The left parietal subdural hematoma is no longer seen. Question some mild residual tentorial subdural. POS: [facility]
== END 2020-08-14 14:50 | disposition home or self-care (01) ==
LOC: TBSIIMAG 14:49
PROVIDERS: ATTEND Surgery
DX: S06.5X9A Traumatic subdural hemorrhage with loss of consciousness of unspecified duration, initial encounter (principal); R23.3 Spontaneous ecchymoses
CPT/HCPCS: 70450